=== PATIENT | male | born 1930 | race Caucasian/White ===

== ENCOUNTER → 2018-06-21 | Outpatient (CLI) | payer OTHER, MEDICARE ==
--- NOTE | 2018-06-21 13:33 | DIAGNOSTIC IMAGING REPORT ---
R WRIST MIN 3 VIEWS ROUTINE HISTORY: 88 years-old Male RIGHT WRIST PAIN acute right-sided wrist pain COMPARISON: None available TECHNIQUE: 3 views of the right wrist FINDINGS: Demineralized appearance of the bones. Chronic ulnar styloid fracture. Mild radiocarpal with advanced triscaphe and severe first carpometacarpal osteoarthritis. There is no acute fracture or dislocation identified. No opaque foreign body. Mild soft tissue swelling about the distal forearm and wrist. IMPRESSION: Soft tissue swelling without acute fracture. The above report was generated using voice recognition software. It may contain grammatical, syntax or spelling errors. Electronically signed by: Hai Avery M.D. 06/21/2018 1:31 PM Dictated Date/Time: 06/21/2018 1:29 PM
== END | disposition home or self-care (01) ==
LOC: C.RAD1850 11:58
PROVIDERS: ATTEND Family Medicine
DX: M25.531 Pain in right wrist (principal); M79.89 Other specified soft tissue disorders; W19.XXXA Unspecified fall, initial encounter

== ENCOUNTER 2019-11-09 14:11 | Inpatient (IN) ==
[2019-11-09] MEDS ORDERED: SODIUM CHLORIDE 0.9% 1000ML 1,000 ML IV ONE ×2 (14:35→14:56)
[2019-11-09] MEDS ORDERED: LEVALBUTEROL HCL 1.25 MG/3 ML NEB NEB STA ×2 (14:36→14:50)
[2019-11-09] MEDS ORDERED: LEVOFLOXACIN/D5W 750 MG/150 ML BAG IV STA (14:49)
[2019-11-09] MEDS ORDERED: PIPERACILL/TAZOBAC CONSULT ACTIVE PRN (14:49)
[2019-11-09] MEDS ORDERED: VANCOMYCIN HCL 1,250 MG in SODIUM CHLORIDE 0.9% 500 ML IV ONE (14:49)
[2019-11-09] MEDS ORDERED: VANCOMYCIN CONSULT ACTIVE PRN (14:49)
[2019-11-09] MEDS ORDERED: PIPERACILLIN/TAZOBACTAM 4.5 GM/120 ML BAG IV ONE (14:49)
--- NOTE | 2019-11-09 15:00 | XRay Report ---
XR chest 1V portable CLINICAL HISTORY: Sepsis. COMPARISON STUDY: Chest radiograph November 19, 2018. FINDINGS: There is no pneumothorax or pleural effusion. Several old left rib fractures are noted. Pat ient is rotated. Mild cardiomegaly is noted. Mild asymmetric interstitial thickening within the right lung is noted. There may be right perihilar/infrahilar opacity. IMPRESSION: Asymmetric interstitial thickening within the right lung with possible right perihilar/i nfrahilar opacity. These findings may reflect pneumonia or asymmetric pulmonary edema. Radiographic follow-up is recommended ACT 112: Negative or not required by law. Electronically signed by: Dell Rocha M.D. 11/09/2019 2:59 PM
[2019-11-09 15:07] LABS: iSTAT Creatinine 0.9 mg/dl (0.6-1.3); iSTAT Hemoglobin 13.6 g/dl (14.0-18.0); iSTAT Ionized Calcium 1.24 mmol/l (1.12-1.32); iSTAT Potassium 4.3 mEq/L (3.3-5.0)
[2019-11-09 15:11] LABS: Hematocrit (blood only) 36.6 % (42-52); Hemoglobin 12.3 g/dL (14.0-18.0); Mean Corpuscular Hemoglobin 31.3 pg (25-34); Mean Corpuscular Hgb Conc 33.6 g/dL (32-36); Mean Corpuscular Volume 93.1 fL (80-100); Mean Platelet Volume 9.6 fL (7.4-10.4); Platelet Count 256 K/uL (130-400); RDW Coefficient of Variation 14.6 % (11.5-14.5); RDW Standard Deviation 49.3 fL (36.4-46.3); Red Blood Count 3.93 M/uL (4.7-6.1); White Blood Count 25.57 K/uL (4.8-10.8)
[2019-11-09] MEDS ORDERED: HYDROCORTISONE SOD SUCCINATE 100 MG/2 ML VIAL IV STA (15:25)
[2019-11-09 15:27] LABS: INR 1.2 (0.9-1.1); Partial Thromboplastin Ratio 1.1; Partial Thromboplastin Time 28.9 Seconds (21.0-31.0); Prothrombin Time 11.8 Seconds (9.0-12.0)
[2019-11-09 15:28] LABS: Albumin Level 2.7 gm/dl (3.4-5.0); BUN Creatinine Ratio 26.5 (10-20); Calcium 9.4 mg/dl (8.5-10.1); Creatinine Clr Calc Pharmacy 44.4 ml/min; Est GFR (Non-African American) 63.8; Potassium 3.9 mmol/L (3.5-5.1)
[2019-11-09 15:38] LABS: Appearance Urine Clear (Clear); Bacteria Urine Automated Negative (Negative); Blood Urine Trace (Negative); Color Urine Orange; Glucose Urine UA Negative (Negative); Ketones Urine Negative (Negative); Leukocyte Esterase Urine Trace (Negative); Nitrite Urine Negative (Negative); Protein Urine Trace (Negative); Specific Gravity Urine 1.023 (1.000-1.030); Urobilinogen Urine Negative (Negative); pH Urine 5.5 (4.5-7.5)
[2019-11-09 15:42] LABS: Albumin Globulin Ratio 0.8 (0.9-2); Bilirubin,Total 2.2 mg/dl (0.2-1); Creatine Kinase MB 2.3 ng/ml (0.5-3.6); Globulin 3.4 gm/dl (2.5-4.0); Total Protein 6.1 gm/dl (6.4-8.2); Troponin I 0.064 ng/ml (0-0.045)
[2019-11-09 15:43] LABS: Influenza A virus by PCR Neg for Influ A (Neg); Influenza B virus by PCR Neg for Influ B (Neg)
[2019-11-09 15:46] LABS: Basophils # (auto) 0.02 K/uL (0-0.2); Basophils % (auto) 0.1 %; Immature Granulocytes # (auto) 0.13 K/uL (0.00-0.02); Immature Granulocytes % (auto) 0.5 %; Lymphocytes # (auto) 0.86 K/uL (1.2-3.4); Lymphocytes % (auto) 3.4 %; Monocytes # (auto) 2.38 K/uL (0.11-0.59); Monocytes % (auto) 9.3 %; Neutrophils # (auto) 22.18 K/uL (1.4-6.5); Neutrophils % (auto) 86.7 %
[2019-11-09 16:07] LABS: Bilirubin Urine 1+ (Negative)
[2019-11-09 16:09] LABS: Ictotest Urine Positive (Negative)
--- NOTE | 2019-11-09 16:12 | History & Physical Report ---
Date of Service November 09, 2019 Assessment & Plan (1) Pneumonia: Admits to telemetry Vital signs every 4 hours Lactic acid 1.8, repeat pending Monitor electrolytes and replenish Patient was given vancomycin, piperacillin, levofloxacin in the ER. He received 2250 mils of on normal saline and hydrocortisone sodium 100 mg IV, level butyryl 1.25 mg nebs x3 Arrival to the [facility] start patient on ceftriaxone 2 g IV daily with doxycycline 100 mg IV twice daily Duo nebs every 4 hours scheduled and as needed per RT Blood culture, urine culture and sputum pending Continue Solu-Medrol 40 mg IV twice daily Chest x-ray is referring to possible pulmonary edema. Patient was started on Lasix 20 IV twice daily. Will titrate up as needed to achieve diuresis of 1 to 1.5 L/day. 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 Present on Admission?: Yes (2) Hypotension: Continue monitoring. Patient will possibly need vasopressors and that was discussed with Dr. Peterson Hold home dose of lisinopril Present on Admission?: Yes (3) Acute respiratory failure: As discussed above, continue supplemental oxygen and keep oxygenation a idania 92% Present on Admission?: Yes (4) Elevated troponin: Appears to be due to demand ischemia Continue trending down troponins with EKG Patient denies chest pain TTE pending Present on Admission?: Yes History of Present Illness Chief Complaint: Shortness of breath and cough Primary Care Provider: Perez Barros MD The patient is an 89 years old male with past medical history of hypertension who was brought to the emergency room with a complaint of fever chills cough being dizzy for 3 to 5 days. Patient son and daughter are at the bedside and giving history. Patient is poor historian and his daughter said this occurred after he had in OctoberMay 2019 removal of subdural hematoma in [facility]. Current CT scan measures up to 7 mm in thickness small left frontal chronic subdural hematoma. No acute hemorrhage identified. No mass or acute infarct. Minimal right midline shift, unchanged. Mild atrophy and microvascular ischemic changes are again noted. Patient daughter reports that patient girlfriend ended up with a pneumonia in another hospital approximately 7 days ago. Patient ambulate only with walker but lately became increasingly weak that family believes at this time he can only use wheelchair to move around. Patient's appetite is decreased as of today but yesterday he ate very well. Patient denies headache, chest pain, abdominal pain, frequency, urgency, syncope or near syncope. Patient daughter also reported a swelling of his right calf. Ultrasound of the calf was done and shows no fluid collection within the right calf by sonography. No mass or other sonographic abnormality was identified no right calf abscess by ultrasound. Labs are reviewed: WBC is 25.57, hemoglobin 12.3, hematocrit 36.6, platelets 256, PT 11.8, INR 1.2, APTT 28.9, sodium 137, potassium 3.9, chloride 104, BUN 28 creatinine 1.04, and GFR 63.8, glucose 118, lactate 1.8, repeated lactate pending, magnesium 2, AST 21, ALT 27, troponin 0.064, BNP 3203, Albumin 2.7, TSH pending, procalcitonin 9.28. Urine orange, trace blood, 1+ nitrate, leukocyte esterase trace, normal WBCs negative for bacteria. Influenza AMB negative. Chest x-rays show asymmetric interstitial thickening within the right lung with possible right perihilar/infrahilar opacity. These findings may reflect pneumonia or asymmetric pulmonary edema. Decision is made to admit patient to [facility] on telemetry for pneumonia. Allergies Allergy/AdvReac Type Severity Reaction Status Date / Time No Known Allergies Allergy Verified 11/09/19 15:19 Home Medications Home Medications Medication Instructions Recorded Confirmed Type lisinopril 10 mg PO DAILY 11/19/18 11/09/19 History Past Med/Surg History Medical History Arthritis (Chronic) Basal cell carcinoma (Chronic) Falls frequently (Acute) History of fall SDH (subdural hematoma) (Chronic) Surgical History No significant past surgical history Family History Other Family history non-contributory Social History Preferred Language: Malian Communication Ability: Effective Current Living Situation: Family Feels Safe at Home: Yes Smoking Status: Never smoker Review of Systems Review of Systems: All systems reviewed & are unremarkable except as noted in HPI & below Physical Exam Constitutional: WD/WN, vitals as above well developed and + cachectic Eyes: PERRL, conjunctivae normal, anicteric sclerae ENMT: external ear and nose normal, oropharynx normal Neck: trachea midline, no thyromegaly Respiratory: normal respiratory effort, + respiratory distress and + labored breathing Auscultation: + crackles and + wheezes Cardiovascular: Heart Sounds: normal S1 and normal S2 Palpation: + palpable S3 Gastrointestinal (Abdomen): normal bowel sounds, soft, nontender, no hepatosplenomegaly Musculoskeletal: no cyanosis or clubbing, extremities motor strength 5/5 Skin: Multiple skin lesions on the scalp upper chest and face-basal cell carcinoma per patient history Neurologic: patellar DTR's 2+ bilat, sensation intact Psychiatric: A+Ox3, euthymic affect Lymphatic: no cervical or axillary lymphadenopathy Results & Data Vital Signs (Past 12 Hours) Vital Signs Temp Pulse Pulse Resp BP Pulse Ox 11/09/19 15:17 85 18 96 11/09/19 14:50 89 20 94 11/09/19 14:44 94 11/09/19 14:17 37.2 C 101 H 20 63/41 L 90 Code Status & VTE Plan Code Status DNR/DNI VTE Prophylaxis Plan VTE Prophylaxis will be ordered: Yes PG Care Time/CCT Total # of Minutes Spent Total Time Spent with Patient: Total time spent is greater than 50% in c oordination of care (as documented) at patient's floor/unit and/or counseling patient:
--- NOTE | 2019-11-09 16:28 | Ultrasound Report ---
US extremity non-vascular ltd CLINICAL HISTORY: Rt calf abscess COMPARISON STUDY: No previous studies for comparison. TECHNIQUE: Sonography of the right calf at site of swelling was performed. FINDINGS: No fluid collection was identified within the right calf by sonography. No mass or other so nographic abnormality was identified IMPRESSION: No right calf abscess by ultrasound. ACT 112: Negative or not required by law. Electronically signed by: Dell Rocha M.D. 11/09/2019 4:26 PM
[2019-11-09] MEDS ORDERED: SODIUM CHLORIDE 0.9% 1000ML 250 ML IV ONE (16:45)
--- NOTE | 2019-11-09 19:05 | Emergency Department Note ---
Entered by Ciera La acting as a scribe for History of Present Illness General Chief complaint: Fever Stated complaint: FEVER, COUGH Time Seen by Provider: 11/09/19 14:29 Source: family (daughter) History of Present Illness Onset (ago): day(s) (couple) Location: chest (chest congestion) Pain Consistency: + other (worsening) Relieved By: + none Associated symptoms: + cough, + fever/chills (fever) and + other (dehydration, chest congestion, low oxygen levels) Treatments prior to arrival: other (Advil) The patient is a 89 year old M who presents to the Emergency Room with complaints of a worsening chest congestion that started a couple of days ago. The HPI was provided by the patients daughter. She states that the patient lives his friend. She notes that the patients friends family picked up the friend yesterday and took her to the ER. She adds that the patients friend was admitted to the hospital for pneumonia, yesterday. She states that she took the patient to see his PCP, Dr. Barros, , because he was experiencing low oxygen levels. She a notes that the patient is currently experiencing low oxygen levels, a fever, dehydration, chest congestion, and coughing. She adds that she took the patients temperature this morning, which she states was 100.5. She notes that she gave the patient Advil for his fever. She states that the patient walks minimally with a walker. She adds that the patient has been eating small amounts of food for the past week. Home Medications Home Medications Medication Instructions Recorded Confirmed Type lisinopril 10 mg PO DAILY 11/19/18 11/09/19 History Allergies Allergy/AdvReac Type Severity Reaction Status Date / Time No Known Allergies Allergy Verified 11/09/19 15:19 Past Med/Surg History Medical History Arthritis (Chronic) Basal cell carcinoma (Chronic) Falls frequently (Acute) History of fall SDH (subdural hematoma) (Chronic) Surgical History No significant past surgical history Family History Other Family history non-contributory Social History Preferred Language: Bulgarian Communication Ability: Effective Current Living Situation: Family Feels Safe at Home: Yes Smoking Status: Never smoker Review of Systems See HPI for pertinent positives & negatives. and A total of 10 systems reviewed and were otherwise negative Physical Exam Vital Signs Vital Signs - 24 hr 11/09/19 14:17 11/09/19 14:30 11/09/19 14:40 Temperature 37.2 C Temperature Source Oral Pulse Rate 101 H 90 91 H Pulse Rate [Apical] Pulse Rate from SpO2 Sensor 89 91 H Pulse Rhythm [Apical] Respiratory Rate 20 19 21 Respiratory Effort / Characteristics Non-Labored Spontaneous Respiratory Depth Normal Respiratory Pattern Regular Blood Pressure 63/41 L 74/50 L 94/50 L Blood Pressure [Right Arm] Blood Pressure Mean 48 61 54 Blood Pressure Mean [Right Arm] Blood Pressure Position Sitting Pulse Oximetry 90 90 92 Oxygen Delivery Method Room Air Nasal Cannula Nasal Cannula Oxygen Flow Rate 4 Sepsis Recent Fever Within 48 Hours Yes Sepsis New/Unexplained Change in Mental Status Yes Sepsis Action Taken by Nursing Physician Notified 11/09/19 14:44 11/09/19 14:45 11/09/19 14:50 Temperature Temperature Source Pulse Rate 89 Pulse Rate [Apical] 89 Pulse Rate from SpO2 Sensor 90 Pulse Rhythm [Apical] Respiratory Rate 20 20 Respiratory Effort / Characteristics Spontaneous Respiratory Depth Respiratory Pattern Blood Pressure 86/52 L Blood Pressure [Right Arm] Blood Pressure Mean 65 Blood Pressure Mean [Right Arm] Blood Pressure Position Pulse Oximetry 94 94 94 Oxygen Delivery Method Nasal Cannula Nasal Cannula Nasal Cannula Oxygen Flow Rate 4 4 Sepsis Recent Fever Within 48 Hours Sepsis New/Unexplained Change in Mental Status Sepsis Action Taken by Nursing 11/09/19 15:00 11/09/19 15:15 11/09/19 15:17 Temperature Temperature Source Pulse Rate 86 79 Pulse Rate [Apical] 85 Pulse Rate from SpO2 Sensor 86 79 Pulse Rhythm [Apical] Respiratory Rate 18 17 18 Respiratory Effort / Characteristics Spontaneous Respiratory Depth Respiratory Pattern Blood Pressure 91/52 L 85/48 L Blood Pressure [Right Arm] Blood Pressure Mean 62 62 Blood Pressure Mean [Right Arm] Blood Pressure Position Pulse Oximetry 95 96 96 Oxygen Delivery Method Nasal Cannula Nasal Cannula Nasal Cannula Oxygen Flow Rate 4 Sepsis Recent Fever Within 48 Hours Sepsis New/Unexplained Change in Mental Status Sepsis Action Taken by Nursing 11/09/19 15:30 11/09/19 15:46 11/09/19 16:19 Temperature Temperature Source Pulse Rate 76 78 88 Pulse Rate [Apical] Pulse Rate from SpO2 Sensor 77 87 Pulse Rhythm [Apical] Respiratory Rate 18 18 19 Respiratory Effort / Characteristics Respiratory Depth Respiratory Pattern Blood Pressure 102/47 L 112/45 L 97/51 L Blood Pressure [Right Arm] Blood Pressure Mean 66 81 66 Blood Pressure Mean [Right Arm] Blood Pressure Position Pulse Oximetry 98 93 Oxygen Delivery Method Nasal Cannula Nasal Cannula Oxygen Flow Rate Sepsis Recent Fever Within 48 Hours Sepsis New/Unexplained Change in Mental Status Sepsis Action Taken by Nursing 11/09/19 16:20 11/09/19 16:21 11/09/19 16:31 Temperature Temperature Source Pulse Rate 90 85 88 Pulse Rate [Apical] 90 Pulse Rate from SpO2 Sensor 96 H 86 90 Pulse Rhythm [Apical] Regular Respiratory Rate 17 18 18 Respiratory Effort / Characteristics Spontaneous Respiratory Depth Normal Respiratory Pattern Blood Pressure 85/42 L 91/44 L 83/44 L Blood Pressure [Right Arm] 91/44 L Blood Pressure Mean 52 68 59 Blood Pressure Mean [Right Arm] 59 Blood Pressure Position Pulse Oximetry 95 96 94 Oxygen Delivery Method Nasal Cannula Nasal Cannula Nasal Cannula Oxygen Flow Rate 4 Sepsis Recent Fever Within 48 Hours Sepsis New/Unexplained Change in Mental Status Sepsis Action Taken by Nursing 11/09/19 16:45 11/09/19 17:00 11/09/19 17:15 Temperature Temperature Source Pulse Rate 74 75 65 Pulse Rate [Apical] Pulse Rate from SpO2 Sensor 74 76 71 Pulse Rhythm [Apical] Respiratory Rate 13 17 Respiratory Effort / Characteristics Respiratory Depth Respiratory Pattern Blood Pressure 88/48 L 90/52 L 115/52 L Blood Pressure [Right Arm] Blood Pressure Mean 63 63 63 Blood Pressure Mean [Right Arm] Blood Pressure Position Pulse Oximetry 96 96 92 Oxygen Delivery Method Nasal Cannula Nasal Cannula Nasal Cannula Oxygen Flow Rate Sepsis Recent Fever Within 48 Hours Sepsis New/Unexplained Change in Mental Status Sepsis Action Taken by Nursing 11/09/19 17:30 11/09/19 17:45 11/09/19 17:49 Temperature Temperature Source Pulse Rate 66 67 71 Pulse Rate [Apical] Pulse Rate from SpO2 Sensor 68 68 70 Pulse Rhythm [Apical] Respiratory Rate 16 14 15 Respiratory Effort / Characteristics Respiratory Depth Respiratory Pattern Blood Pressure 105/49 L 111/60 110/58 L Blood Pressure [Right Arm] Blood Pressure Mean 64 78 67 Blood Pressure Mean [Right Arm] Blood Pressure Position Pulse Oximetry 95 95 94 Oxygen Delivery Method Nasal Cannula Oxygen Flow Rate Sepsis Recent Fever Within 48 Hours Sepsis New/Unexplained Change in Mental Status Sepsis Action Taken by Nursing 11/09/19 18:00 11/09/19 18:12 11/09/19 18:15 Temperature Temperature Source Pulse Rate 68 66 68 Pulse Rate [Apical] Pulse Rate from SpO2 Sensor 67 66 68 Pulse Rhythm [Apical] Respiratory Rate 18 15 16 Respiratory Effort / Characteristics Respiratory Depth Respiratory Pattern Blood Pressure 127/71 112/58 L 113/61 Blood Pressure [Right Arm] Blood Pressure Mean 90 83 84 Blood Pressure Mean [Right Arm] Blood Pressure Position Pulse Oximetry 97 96 97 Oxygen Delivery Method Oxygen Flow Rate Sepsis Recent Fever Within 48 Hours Sepsis New/Unexplained Change in Mental Status Sepsis Action Taken by Nursing 11/09/19 18:30 Temperature Temperature Source Pulse Rate 69 Pulse Rate [Apical] Pulse Rate from SpO2 Sensor 69 Pulse Rhythm [Apical] Respiratory Rate 20 Respiratory Effort / Characteristics Respiratory Depth Respiratory Pattern Blood Pressure 122/70 Blood Pressure [Right Arm] Blood Pressure Mean 75 Blood Pressure Mean [Right Arm] Blood Pressure Position Pulse Oximetry 98 Oxygen Delivery Method Oxygen Flow Rate Sepsis Recent Fever Within 48 Hours Sepsis New/Unexplained Change in Mental Status Sepsis Action Taken by Nursing GENERAL: Awake, alert, cachectic-appearing HENT: Normocephalic, atraumatic. Oropharynx unremarkable. EYES: Normal conjunctiva. Sclera non-icteric. NECK: Supple. No nuchal rigidity. FROM. No JVD. RESPIRATORY: Rales at bases. CARDIAC: Regular rate, normal rhythm. Extremities warm and well perfused. Pulses equal. ABDOMEN: Soft, non-distended. No tenderness to palpation. No rebound or guarding. No masses. RECTAL: Deferred. MUSCULOSKELETAL: Chest examination reveals no tenderness. The back is symmetrical on inspection without obvious abnormality. There is no CVA tenderness to palpation. No joint edema. LOWER EXTREMITIES: Calves are equal size bilaterally and non-tender. No edema. No discoloration. NEURO: Normal sensorium. No sensory or motor deficits noted. SKIN: No rash or jaundice noted. Quarter sized wound on the right calf area that is draining purulent drainage. Course Course 1431: The patient was evaluated in room A2. A complete history and physical exam was performed. 1452: I re-checked the patient. Blood pressures are improving. 1548: I reviewed the patient's case with Dr. Kim, [facility] Hospitalist. She will evaluate the patient for further management. Administered Medications Discontinued Medications Hydrocortisone Sodium Succinate (Solu-Cortef) 100 mg IV NOW STA Stop: 11/09/19 15:26 Last Admin: 11/09/19 15:48 Dose: 100 mg Documented by: [id number] Sodium Chloride (Nss 1000ml) 1,000 mls @ 999 mls/hr IV .Q1H1M ONE Stop: 11/09/19 15:35 Last Infusion: 11/09/19 15:49 Dose: 0 mls/hr Documented by: [id number] Admin: 11/09/19 14:50 Dose: 999 mls/hr Documented by: [id number] Piperacillin Sod/Tazobactam Sod (Zosyn) 4.5 gm in 120 mls @ 240 mls/hr IV NOW ONE Stop: 11/09/19 15:18 Last Infusion: 11/09/19 15:49 Dose: 0 mls/hr Documented by: [id number] Admin: 11/09/19 15:06 Dose: 240 mls/hr Documented by: [id number] Levofloxacin/Dextrose (Levaquin/D5w) 750 mg in 150 mls @ 100 mls/hr IV NOW STA Stop: 11/09/19 16:18 Last Infusion: 11/09/19 16:36 Dose: 0 mls/hr Documented by: [id number] Admin: 11/09/19 15:05 Dose: 100 mls/hr Documented by: [id number] Vancomycin HCl 1,250 mg/ (Sodium Chloride) 525 mls @ 200 mls/hr IV NOW ONE Stop: 11/09/19 17:26 Last Infusion: 11/09/19 18:39 Dose: 0 mls/hr Documented by: [id number] Admin: 11/09/19 15:48 Dose: 200 mls/hr Documented by: [id number] Sodium Chloride (Nss 1000ml) 1,000 mls @ 999 mls/hr IV .Q1H1M ONE Stop: 11/09/19 15:56 Last Infusion: 11/09/19 16:02 Dose: 0 mls/hr Documented by: [id number] Admin: 11/09/19 15:13 Dose: 999 mls/hr Documented by: [id number] Sodium Chloride (Nss 1000ml) 250 mls @ 999 mls/hr IV .Q16M ONE Stop: 11/09/19 17:00 Last Infusion: 11/09/19 18:39 Dose: 0 mls/hr Documented by: [id number] Admin: 11/09/19 16:49 Dose: 999 mls/hr Documented by: [id number] Levalbuterol HCl (Xopenex 1.25mg/3ml Neb) 1.25 mg NEB NOW STA Stop: 11/09/19 14:37 Last Admin: 11/09/19 14:48 Dose: 1.25 mg Documented by: [id number] Levalbuterol HCl (Xopenex 1.25mg/3ml Neb) 1.25 mg NEB NOW STA Stop: 11/09/19 14:51 Last Admin: 11/09/19 15:14 Dose: 1.25 mg Documented by: [id number] Critical Care Time I have personally spent greater than 90 minutes of critical care time in the direct management of this patient. This includes bedside care, interpretation of diagnostic studies, and testing, discussion with consultants, patient, and family members, and other required patient management activities. This 90 minutes is in excess of all separately billable procedures. Medical Decision Making Differential Diagnosis Differential diagnosis: Etiologies such as sepsis, UTI, pneumonia, metabolic, electrolyte abnormalities,cardiac sources, intracerebral event, toxicologic, neurologic, as well as others were entertained. Medical Records Attestation: I reviewed the patient's medical records. Home Medications Current Medication List: was personally reviewed by me Laboratory Data Attestation: I reviewed the patient's lab results. Result diagrams: 11/09/19 14:52 11/09/19 14:52 Lab Results 11/09/19 11/09/19 11/09/19 Range/Units 14:41 14:52 14:52 WBC 25.57 H (4.8-10.8) K/uL RBC 3.93 L (4.7-6.1) M/uL Hgb 12.3 L (14.0-18.0) g/dL POC Hgb (14.0-18.0) g/dl Hct 36.6 L (42-52) % POC Hct (42-52) % MCV 93.1 (80-100) fL MCH 31.3 (25-34) pg MCHC 33.6 (32-36) g/dL RDW Std Deviation 49.3 H (36.4-46.3) fL RDW Coeff of Radha 14.6 H (11.5-14.5) % Plt Count 256 (130-400) K/uL MPV 9.6 (7.4-10.4) fL Immature Gran % (Auto) 0.5 % Neut % (Auto) 86.7 % Lymph % (Auto) 3.4 % Holmes % (Auto) 9.3 % Eos % (Auto) 0.0 % Baso % (Auto) 0.1 % Immature Gran # (Auto) 0.13 H (0.00-0.02) K/uL Neut # (Auto) 22.18 H (1.4-6.5) K/uL Lymph # (Auto) 0.86 L (1.2-3.4) K/uL Holmes # (Auto) 2.38 H (0.11-0.59) K/uL Eos # (Auto) 0.00 (0-0.5) K/uL Baso # (Auto) 0.02 (0-0.2) K/uL PT 11.8 (9.0-12.0) Seconds INR 1.2 H (0.9-1.1) APTT 28.9 (21.0-31.0) Seconds PTT Ratio 1.1 POC Sodium (135-144) mEq/L Sodium (136-145) mmol/L POC Potassium (3.3-5.0) mEq/L Potassium (3.5-5.1) mmol/L POC Chloride (101-112) mEq/L Chloride (98-107) mmol/L Carbon Dioxide (21-32) mmol/L POC Total CO2 (24-31) mEq/l Anion Gap (3-11) POC Anion Gap (16-25) mmol/L POC BUN (7-18) mg/dl BUN (7-18) mg/dl Creatinine (0.6-1.4) mg/dl POC Creatinine (0.6-1.3) mg/dl Est Cr Clr Drug Dosing ml/min Est GFR ( Amer) Est GFR (Non-Af Amer) BUN/Creatinine Ratio (10-20) Glucose (70-99) mg/dl POC Glucose (other) (70-99) mg/dl Lactate (0.4-2.0) mmol/L Calcium (8.5-10.1) mg/dl POC Ioniz Calcium Melba (1.12-1.32) mmol/l Magnesium (1.8-2.4) mg/dl Total Bilirubin (0.2-1) mg/dl AST (15-37) U/L ALT (12-78) U/L Alkaline Phosphatase (45-117) U/L Total Creatine Kinase (39-308) U/L CK-MB (CK-2) (0.5-3.6) ng/ml CK/CKMB % Calc (0-3.0) Troponin I (0-0.045) ng/ml NT-Pro-B Natriuret Pep (0-1800) pg/ml Total Protein (6.4-8.2) gm/dl Albumin (3.4-5.0) gm/dl Globulin (2.5-4.0) gm/dl Albumin/Globulin Ratio (0.9-2) Procalcitonin (0-0.5) ng/ml Urine Color Urine Appearance (Clear) Urine pH (4.5-7.5) Ur Specific [place] (1.000-1.030) Urine Protein (Negative) Urine Glucose (UA) (Negative) Urine Ketones (Negative) Urine Blood (Negative) Urine Nitrite (Negative) Urine Bilirubin (Negative) Urine Urobilinogen (Negative) Ur Leukocyte Esterase (Negative) Urine WBC (Auto) (0-5) /hpf Urine RBC (Auto) (0-4) /hpf U Hyaline Cast (Auto) (0-5) /lpf U Epithel Cells (Auto) (0-5) /lpf Urine Bacteria (Auto) (Negative) Influenza Type A (PCR) Neg for Influ A (Neg) Influenza Type B (PCR) Neg for Influ B (Neg) 11/09/19 11/09/19 11/09/19 Range/Units 14:52 14:52 14:52 WBC (4.8-10.8) K/uL RBC (4.7-6.1) M/uL Hgb (14.0-18.0) g/dL POC Hgb (14.0-18.0) g/dl Hct (42-52) % POC Hct (42-52) % MCV (80-100) fL MCH (25-34) pg MCHC (32-36) g/dL RDW Std Deviation (36.4-46.3) fL RDW Coeff of Radha (11.5-14.5) % Plt Count (130-400) K/uL MPV (7.4-10.4) fL Immature Gran % (Auto) % Neut % (Auto) % Lymph % (Auto) % Holmes % (Auto) % Eos % (Auto) % Baso % (Auto) % Immature Gran # (Auto) (0.00-0.02) K/uL Neut # (Auto) (1.4-6.5) K/uL Lymph # (Auto) (1.2-3.4) K/uL Holmes # (Auto) (0.11-0.59) K/uL Eos # (Auto) (0-0.5) K/uL Baso # (Auto) (0-0.2) K/uL PT (9.0-12.0) Seconds INR (0.9-1.1) APTT (21.0-31.0) Seconds PTT Ratio POC Sodium (135-144) mEq/L Sodium 137 (136-145) mmol/L POC Potassium (3.3-5.0) mEq/L Potassium 3.9 (3.5-5.1) mmol/L POC Chloride (101-112) mEq/L Chloride 104 (98-107) mmol/L Carbon Dioxide 26 (21-32) mmol/L POC Total CO2 (24-31) mEq/l Anion Gap 7.0 (3-11) POC Anion Gap (16-25) mmol/L POC BUN (7-18) mg/dl BUN 28 H (7-18) mg/dl Creatinine 1.04 (0.6-1.4) mg/dl POC Creatinine (0.6-1.3) mg/dl Est Cr Clr Drug Dosing 44.4 ml/min Est GFR ( Amer) 74.0 Est GFR (Non-Af Amer) 63.8 BUN/Creatinine Ratio 26.5 H (10-20) Glucose 118 H (70-99) mg/dl POC Glucose (other) (70-99) mg/dl Lactate 1.8 (0.4-2.0) mmol/L Calcium 9.4 (8.5-10.1) mg/dl POC Ioniz Calcium Melba (1.12-1.32) mmol/l Magnesium 2.0 (1.8-2.4) mg/dl Total Bilirubin 2.2 H (0.2-1) mg/dl AST 21 (15-37) U/L ALT 27 (12-78) U/L Alkaline Phosphatase 132 H (45-117) U/L Total Creatine Kinase 52 (39-308) U/L CK-MB (CK-2) 2.3 (0.5-3.6) ng/ml CK/CKMB % Calc 4.4 H (0-3.0) Troponin I 0.064 H* (0-0.045) ng/ml NT-Pro-B Natriuret Pep 3203 H (0-1800) pg/ml Total Protein 6.1 L (6.4-8.2) gm/dl Albumin 2.7 L (3.4-5.0) gm/dl Globulin 3.4 (2.5-4.0) gm/dl Albumin/Globulin Ratio 0.8 L (0.9-2) Procalcitonin 9.28 H (0-0.5) ng/ml Urine Color Urine Appearance (Clear) Urine pH (4.5-7.5) Ur Specific [place] (1.000-1.030) Urine Protein (Negative) Urine Glucose (UA) (Negative) Urine Ketones (Negative) Urine Blood (Negative) Urine Nitrite (Negative) Urine Bilirubin (Negative) Urine Urobilinogen (Negative) Ur Leukocyte Esterase (Negative) Urine WBC (Auto) (0-5) /hpf Urine RBC (Auto) (0-4) /hpf U Hyaline Cast (Auto) (0-5) /lpf U Epithel Cells (Auto) (0-5) /lpf Urine Bacteria (Auto) (Negative) Influenza Type A (PCR) (Neg) Influenza Type B (PCR) (Neg) 11/09/19 11/09/19 11/09/19 Range/Units 14:55 15:24 17:05 WBC (4.8-10.8) K/uL RBC (4.7-6.1) M/uL Hgb (14.0-18.0) g/dL POC Hgb 13.6 L (14.0-18.0) g/dl Hct (42-52) % POC Hct 40 L (42-52) % MCV (80-100) fL MCH (25-34) pg MCHC (32-36) g/dL RDW Std Deviation (36.4-46.3) fL RDW Coeff of Radha (11.5-14.5) % Plt Count (130-400) K/uL MPV (7.4-10.4) fL Immature Gran % (Auto) % Neut % (Auto) % Lymph % (Auto) % Holmes % (Auto) % Eos % (Auto) % Baso % (Auto) % Immature Gran # (Auto) (0.00-0.02) K/uL Neut # (Auto) (1.4-6.5) K/uL Lymph # (Auto) (1.2-3.4) K/uL Holmes # (Auto) (0.11-0.59) K/uL Eos # (Auto) (0-0.5) K/uL Baso # (Auto) (0-0.2) K/uL PT (9.0-12.0) Seconds INR (0.9-1.1) APTT (21.0-31.0) Seconds PTT Ratio POC Sodium 134 L (135-144) mEq/L Sodium (136-145) mmol/L POC Potassium 4.3 (3.3-5.0) mEq/L Potassium (3.5-5.1) mmol/L POC Chloride 101 (101-112) mEq/L Chloride (98-107) mmol/L Carbon Dioxide (21-32) mmol/L POC Total CO2 26 (24-31) mEq/l Anion Gap (3-11) POC Anion Gap 13.0 L (16-25) mmol/L POC BUN 29 H (7-18) mg/dl BUN (7-18) mg/dl Creatinine (0.6-1.4) mg/dl POC Creatinine 0.9 (0.6-1.3) mg/dl Est Cr Clr Drug Dosing ml/min Est GFR ( Amer) Est GFR (Non-Af Amer) BUN/Creatinine Ratio (10-20) Glucose (70-99) mg/dl POC Glucose (other) 116 H (70-99) mg/dl Lactate 3.5 H* (0.4-2.0) mmol/L Calcium (8.5-10.1) mg/dl POC Ioniz Calcium Melba 1.24 (1.12-1.32) mmol/l Magnesium (1.8-2.4) mg/dl Total Bilirubin (0.2-1) mg/dl AST (15-37) U/L ALT (12-78) U/L Alkaline Phosphatase (45-117) U/L Total Creatine Kinase (39-308) U/L CK-MB (CK-2) (0.5-3.6) ng/ml CK/CKMB % Calc (0-3.0) Troponin I (0-0.045) ng/ml NT-Pro-B Natriuret Pep (0-1800) pg/ml Total Protein (6.4-8.2) gm/dl Albumin (3.4-5.0) gm/dl Globulin (2.5-4.0) gm/dl Albumin/Globulin Ratio (0.9-2) Procalcitonin (0-0.5) ng/ml Urine Color [place] Urine Appearance Clear (Clear) Urine pH 5.5 (4.5-7.5) Ur Specific [place] 1.023 (1.000-1.030) Urine Protein Trace H (Negative) Urine Glucose (UA) Negative (Negative) Urine Ketones Negative (Negative) Urine Blood Trace H (Negative) Urine Nitrite Negative (Negative) Urine Bilirubin 1+ H (Negative) Urine Urobilinogen Negative (Negative) Ur Leukocyte Esterase Trace H (Negative) Urine WBC (Auto) 1-5 (0-5) /hpf Urine RBC (Auto) 5-10 H (0-4) /hpf U Hyaline Cast (Auto) 1-5 (0-5) /lpf U Epithel Cells (Auto) 5-10 H (0-5) /lpf Urine Bacteria (Auto) Negative (Negative) Influenza Type A (PCR) (Neg) Influenza Type B (PCR) (Neg) Imaging Data Radiologist's Impression: Radiology results as stated below per my review and the radiologist's interpretation: XR chest 1V portable CLINICAL HISTORY: Sepsis. COMPARISON STUDY: Chest radiograph November 19, 2018. FINDINGS: There is no pneumothorax or pleural effusion. Several old left rib fractures are noted. Patient is rotated. Mild cardiomegaly is noted. Mild asymmetric interstitial thickening within the right lung is noted. There may be right perihilar/infrahilar opacity. IMPRESSION: Asymmetric interstitial thickening within the right lung with possible right perihilar/infrahilar opacity. These findings may reflect pneumonia or asymmetric pulmonary edema. Radiographic follow-up is recommended ACT 112: Negative or not required by law. Electronically signed by: Dell Rocha M.D. 11/09/2019 2:59 PM US extremity non-vascular ltd CLINICAL HISTORY: Rt calf abscess COMPARISON STUDY: No previous studies for comparison. TECHNIQUE: Sonography of the right calf at site of swelling was performed. FINDINGS: No fluid collection was identified within the right calf by sonography. No mass or other sonographic abnormality was identified IMPRESSION: No right calf abscess by ultrasound. ACT 112: Negative or not required by law. Electronically signed by: Dell Rocha M.D. 11/09/2019 4:26 PM ECG Data Attestation: I personally reviewed and interpreted this ECG as follows: Indication: + other (chest congestion) Rate (beats per minute): 88 ECG Intervals/blocks: + First degree AV block and + Left anterior fascicular block ECG ST segments: no ST depression and no ST elevation ECG Findings: + Other (QTc 428) Blood Pressure Blood Pressure Findings: Low blood pressure Blood Pressure Disposition: further management by hospitalist MDM Narrative This is an 89-year-old male who presents emergency department complaining of weakness. The patient is found to be hypotensive and tachycardic and hypoxic upon arrival to the emergency department. Based on this a sepsis alert was immediately initiated. The patient was given 30 mL's per kilogram of fluid. He was found to have an elevation in his lactate at 3.5, his troponin was also fo und to be elevated as well as his white blood cell count. The patient improved after receiving 2 L of fluid. He was also given Solu-Cortef and started on broad-spectrum antibiotics including Zosyn Levaquin and vancomycin. He was sent for an ultrasound of his right lower extremity to ensure that there was not a drainable abscess there. His chest x-ray is concerning for pneumonia. I did discuss the case with the hospitalist service who did agree to admit the patient. I also had a lengthy conversation with the patient's family in regards to wishes. They do not wish the patient to be intubated or to be resuscitated if his heart were to stop however they are in agreement with fluids and an tibiotics. Impression & Plan Pneumonia, Hypotension, Acute respiratory failure, Elevated troponin Discharge Plan Visit Data Chief Complaint: Fever Stated Complaint: FEVER, COUGH ED Provider: Saji Painter Discharge Problem: Pneumonia, Hypotension, Acute respiratory failure, Elevated troponin Patient Disposition: Admitted As Inpatient Forms Stand Alone Forms: My [facility] Prescriptions Prescriptions: No Action lisinopril 10 mg tablet 10 mg PO DAILY RF: 0 Referrals Referrals: Perez Barros MD [Primary Care Provider] - Discharge Problem: Pneumonia Qualifiers: Pneumonia type: due to unspecified organism Laterality: unspecified laterality Lung location: unspecified part of lung Qualified Code(s): J18.9 - Pneumonia, unspecified organism Hypotension Qualifiers: Hypotension type: unspecified hypotension type Qualified Code(s): I95.9 - Hypotension, unspecified Acute respiratory failure Qualifiers: Respiratory failure complication: hypoxia Qualified Code(s): J96.01 - Acute respiratory failure with hypoxia The scribe's documentation has been prepared under my direction and personally reviewed by me in its entirety. I confirm that the note above accurately re flects all work, treatment, procedures, and medical decision making performed by me.
[2019-11-09] MEDS ORDERED: POLYETHYLENE (MIRALAX) 17 GM PACK PO PRN (19:28)
[2019-11-09] MEDS ORDERED: ACETAMINOPHEN 325 MG TAB PO PRN (19:28)
[2019-11-09] MEDS ORDERED: GUAIFENESIN/CODEINE 200MG/20MG 10ML UDC PO PRN (19:28)
[2019-11-09] MEDS ORDERED: ALUMINUM/MAGNESIUM SUSP 30 ML UDC PO PRN (19:28)
[2019-11-09] MEDS ORDERED: MAGNESIUM HYDROXIDE SUSP 30 ML UDC PO PRN (19:28)
[2019-11-09] MEDS: methylPREDNISolone 20 MG in SYRINGE 0 ML IV SCH (20:44)
[2019-11-09] MEDS: FUROSEMIDE 20 MG in SYRINGE 0 ML IV SCH (20:44)
[2019-11-09] MEDS: cefTRIAXone SODIUM 2,000 MG in DEXTROSE 5% 50 ML IV SCH (20:45)
[2019-11-09] MEDS: BUDESONIDE/FORMOTEROL FUMARATE 160/4.5 60 PUFFS/INHALER INH SCH (20:45)
[2019-11-09] MEDS: DOXYCYCLINE HYCLATE 100 MG in DEXTROSE 5% 100 ML IV SCH (20:52)
[2019-11-09] MEDS ORDERED: FUROSEMIDE 40 MG/4 ML VIAL IV SCH (21:00)
[2019-11-10 01:46] LABS: Hematocrit (blood only) 35.2 % (42-52); Hemoglobin 11.7 g/dL (14.0-18.0); Mean Corpuscular Hemoglobin 30.9 pg (25-34); Mean Corpuscular Hgb Conc 33.2 g/dL (32-36); Mean Corpuscular Volume 92.9 fL (80-100); Platelet Count 214 K/uL (130-400); RDW Coefficient of Variation 14.9 % (11.5-14.5); RDW Standard Deviation 50.1 fL (36.4-46.3); Red Blood Count 3.79 M/uL (4.7-6.1)
[2019-11-10 02:09] LABS: Basophils # (auto) 0.01 K/uL (0-0.2); Basophils % (auto) 0.1 %; Immature Granulocytes # (auto) 0.06 K/uL (0.00-0.02); Immature Granulocytes % (auto) 0.3 %; Lymphocytes # (auto) 0.47 K/uL (1.2-3.4); Lymphocytes % (auto) 2.5 %; Monocytes # (auto) 1.08 K/uL (0.11-0.59); Monocytes % (auto) 5.8 %; Neutrophils # (auto) 16.98 K/uL (1.4-6.5); Neutrophils % (auto) 91.3 %
[2019-11-10 02:11] LABS: Albumin Level 2.4 gm/dl (3.4-5.0); BUN Creatinine Ratio 24.6 (10-20); Calcium 9.2 mg/dl (8.5-10.1); Creatinine Clr Calc Pharmacy 41.7 ml/min; Est GFR (African American) 75.7; Est GFR (Non-African American) 65.3; Potassium 3.3 mmol/L (3.5-5.1)
[2019-11-10 02:23] LABS: Albumin Globulin Ratio 0.7 (0.9-2); Bilirubin,Total 1.1 mg/dl (0.2-1); Globulin 3.6 gm/dl (2.5-4.0); Thyroid Stimulating Hormone 0.963 uIu/ml (0.300-4.500)
--- NOTE | 2019-11-10 06:04 | Electrocardiogram Report ---
Test Reason : Blood Pressure : / mmHG Vent. Rate : 088 BPM Atrial Rate : 088 BPM P-R Int : 224 ms QRS Dur : 118 ms QT Int : 354 ms P-R-T Axes : 018 -56 001 degrees QTc Int : 428 ms Sinus rhythm with 1st degree A-V block Left anterior fascicular block Nonspecific T wave abnormality Abnormal ECG When compared with ECG of 19-NOV-2018 17:26, Nonspecific T wave abnormality is now Present Confirmed by Aj Prado ([id number]) on 11/10/2019 6:04:33 AM Referred By: REFERRED SELF Confirmed By:Aj Prado
[2019-11-10] MEDS: BUDESONIDE/FORMOTEROL FUMARATE 160/4.5 60 PUFFS/INHALER INH SCH ×2 (07:40→19:54)
[2019-11-10] MEDS: FUROSEMIDE 20 MG in SYRINGE 0 ML IV SCH ×2 (08:42→17:05)
[2019-11-10] MEDS: DOXYCYCLINE HYCLATE 100 MG in DEXTROSE 5% 100 ML IV SCH ×2 (08:42→19:54)
[2019-11-10] MEDS: methylPREDNISolone 20 MG in SYRINGE 0 ML IV SCH ×2 (08:42→19:54)
--- NOTE | 2019-11-10 11:40 | Hospitalist Progress Note ---
Date of Service November 10, 2019 Assessment & Plan (1) Pneumonia: Continue admission to telemetry Patient is slowly improving Vital signs every 4 hours Lactic acid 1.8--.3.5--.2.9, since patient is feeling better no need to repeat lactic acid anymore. Monitor electrolytes and replenish Patient was given vancomycin, piperacillin, levofloxacin in the ER. He received 2250 mils of on normal saline and hydrocortisone sodium 100 mg IV, level butyryl 1.25 mg nebs x3 [facility]rival to the [facility] patient on ceftriaxone 2 g IV daily with doxycycline 100 mg IV twice daily Duo nebs every 4 hours scheduled and as needed per RT Blood culture, urine culture and sputum pending Continue Solu-Medrol 40 mg IV twice daily Chest x-ray is referring to possible pulmonary edema. Continue Lasix 20 IV twice daily. Titrate up as needed to achieve diuresis of 1 to 1.5 L/day. 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 (2) Hypotension: Resolved. Now patient became hypertensive again. His blood pressure is 176/86. Restarted lisinopril 10 mg p.o. daily. Monitor blood pressure every 4 hours (3) Acute respiratory failure: As discussed above, continue supplemental oxygen and keep oxygenation above 92% (4) Elevated troponin: Appears to be due to demand ischemia Trending down Continue trending down troponin with EKG Patient denies chest pain TTE : Normal left ventricular size with hyperdynamic systolic function. Ejection fraction 70%. No regional wall motion abnormalities. Mild concentric left ventricular hypertrophy. Sclerotic aortic valve without significant issac nosis. Trace aortic regurgitation. Mild pulmonary hypertension. Estimated RVSP 39. Subjective Patient seen and examined at the bedside. Sitting up in the bed and having breakfast. His daughter is next to his bedside. Patient is now on 2 L of supplemental oxygen which is improvement from yesterday. Patient appears much better in comparison to yesterday. Patient is a poor historian. Patient denies fever, chills, chest pain, shortness of breath, abdominal pain, frequency, urgency. Review of Systems Review of Systems: All systems reviewed & are unremarkable except as noted in HPI & below Physical Exam Constitutional: WD/WN, vitals as above well developed and + cachectic Eyes: PERRL, conjunctivae normal, anicteric sclerae ENMT: external ear and nose normal, oropharynx normal Neck: trachea midline, no thyromegaly Respiratory: normal respiratory effort; no respiratory distress and no labored breathing Auscultation: + crackles (Improving) and + wheezes (Improving) Cardiovascular: Heart Sounds: normal S1 and normal S2 Palpation: + palpable S3 Gastrointestinal (Abdomen): normal bowel sounds, soft, nontender, no hepatosplenomegaly Musculoskeletal: no cyanosis or clubbing, extremities motor strength 5/5 Neurologic: patellar DTR's 2+ bilat, sensation intact Psychiatric: A+Ox3, euthymic affect Lymphatic: no cervical or axillary lymphadenopathy Results & Data Vital Signs (Past 12 Hours) Vital Signs Temp Pulse Pulse Resp BP Pulse Ox 11/10/19 08:00 62 11/10/19 06:48 36.6 C 64 19 129/67 93 11/10/19 04:15 36.5 C 67 12 161/74 H 92 PG Care Time/CCT Total # of Minutes Spent Total Time Spent with Patient: Total time spent is greater than 50% in coordination of care (as documented) at patient's floor/unit and/or counseling patient: (1) Acute respiratory failure Respiratory failure complication: hypoxia Qualified Code(s): J96.01 - Acute respiratory failure with hypoxia (2) Hypotension Hypotension type: unspecified hypotension type Qualified Code(s): I95.9 - Hypotension, unspecified (3) Pneumonia Laterality: unspecified laterality Lung location: unspecified part of lung Pneumonia type: due to unspecified organism Qualified Code(s): J18.9 - Pneumonia, unspecified organism
[2019-11-10] MEDS: cefTRIAXone SODIUM 2,000 MG in DEXTROSE 5% 50 ML IV SCH (19:54)
[2019-11-10] MEDS: lisinopriL 10 MG TAB PO SCH (20:14)
[2019-11-11 06:41] LABS: Hematocrit (blood only) 37.2 % (42-52); Hemoglobin 12.6 g/dL (14.0-18.0); Mean Corpuscular Hemoglobin 31.1 pg (25-34); Mean Corpuscular Hgb Conc 33.9 g/dL (32-36); Mean Corpuscular Volume 91.9 fL (80-100); Mean Platelet Volume 9.9 fL (7.4-10.4); Platelet Count 321 K/uL (130-400); RDW Coefficient of Variation 14.5 % (11.5-14.5); Red Blood Count 4.05 M/uL (4.7-6.1); White Blood Count 25.67 K/uL (4.8-10.8)
[2019-11-11 06:58] LABS: Basophils # (auto) 0.01 K/uL (0-0.2); Immature Granulocytes # (auto) 0.11 K/uL (0.00-0.02); Immature Granulocytes % (auto) 0.4 %; Lymphocytes # (auto) 1.07 K/uL (1.2-3.4); Lymphocytes % (auto) 4.2 %; Monocytes # (auto) 1.34 K/uL (0.11-0.59); Monocytes % (auto) 5.2 %; Neutrophils # (auto) 23.14 K/uL (1.4-6.5); Neutrophils % (auto) 90.2 %
[2019-11-11 07:13] LABS: Albumin Level 2.6 gm/dl (3.4-5.0); BUN Creatinine Ratio 29.5 (10-20); Calcium 10.1 mg/dl (8.5-10.1); Creatinine Clr Calc Pharmacy 26.8 ml/min; Est GFR (African American) 46.4; Potassium 3.2 mmol/L (3.5-5.1)
[2019-11-11 07:18] LABS: Albumin Globulin Ratio 0.7 (0.9-2); Bilirubin,Total 0.6 mg/dl (0.2-1); Globulin 3.9 gm/dl (2.5-4.0); Total Protein 6.5 gm/dl (6.4-8.2)
[2019-11-11] MEDS ORDERED: POTASSIUM CHLORIDE 20 MEQ TABCR PO STA (08:25)
[2019-11-11] MEDS: DOXYCYCLINE HYCLATE 100 MG in DEXTROSE 5% 100 ML IV SCH ×2 (09:30→20:54)
[2019-11-11] MEDS: lisinopriL 10 MG TAB PO SCH (09:30)
[2019-11-11] MEDS: methylPREDNISolone 20 MG in SYRINGE 0 ML IV SCH ×2 (09:31→20:13)
[2019-11-11] MEDS: BUDESONIDE/FORMOTEROL FUMARATE 160/4.5 60 PUFFS/INHALER INH SCH ×2 (09:31→20:13)
[2019-11-11] MEDS ORDERED: ONDANSETRON INJ 2 MG/ML 2 ML VIAL IV PRN (10:56)
[2019-11-11] MEDS ORDERED: PROMETHAZINE HCL 25 MG in SODIUM CHLORIDE 0.9% 50 ML IV PRN (11:15)
--- NOTE | 2019-11-11 18:15 | Hospitalist Progress Note ---
Date of Service November 11, 2019 Assessment & Plan (1) Pneumonia: Continue admission to telemetry Patient is slowly improving Vital signs every 4 hours Lactic acid 1.8--.3.5--.2.9, since patient is feeling better no need to repeat lactic acid anymore. Monitor electrolytes and replenish Patient was given vancomycin, piperacillin, levofloxacin in the ER. He received 2250 mils of on normal saline and hydrocortisone sodium 100 mg IV, level butyryl 1.25 mg nebs x3 [facility]rival to [facility] patient on ceftriaxone 2 g IV daily with doxycycline 100 mg IV twice daily Duo nebs every 4 hours scheduled and as needed per RT Blood culture, urine culture and sputum pending Continue Solu-Medrol 40 mg IV twice daily Chest x-ray is referring to possible pulmonary edema. Continue Lasix 20 IV twice daily. Titrate up as needed to achieve diuresis of 1 to 1.5 L/day. 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 (2) Hypotension: Resolved. Now patient became hypertensive again. His blood pressure is 176/86. Restarted lisinopril 10 mg p.o. daily. Monitor blood pressure every 4 hours (3) Acute respiratory failure: As discussed above, continue supplemental oxygen and keep oxygenation above 92% (4) Elevated troponin: Appears to be due to demand ischemia Trending down Continue trending down troponin with EKG Patient denies chest pain TTE : Normal left ventricular size with hyperdynamic systolic function. Ejection fraction 70%. No regional wall motion abnormalities. Mild concentric left ventricular hypertrophy. Sclerotic aortic valve without significant issac nosis. Trace aortic regurgitation. Mild pulmonary hypertension. Estimated RVSP 39. Subjective Patient seen and examined at the bedside. Sitting up in the bed and having breakfast. His daughter is next to his bedside. Patient is now on 2 L of supplemental oxygen which is improvement from yesterday. Patient appears much better in comparison to yesterday. Patient is a poor historian. Patient denies fever, chills, chest pain, shortness of breath, abdominal pain, frequency, urgency. Review of Systems Review of Systems: All systems reviewed & are unremarkable except as noted in HPI & below Physical Exam Constitutional: WD/WN, vitals as above well developed and + cachectic Eyes: PERRL, conjunctivae normal, anicteric sclerae ENMT: external ear and nose normal, oropharynx normal Neck: trachea midline, no thyromegaly Respiratory: normal respiratory effort; no respiratory distress and no labored breathing Auscultation: + crackles (Improving) and + wheezes (Improving) Cardiovascular: Heart Sounds: normal S1 and normal S2 Palpation: + palpable S3 Gastrointestinal (Abdomen): normal bowel sounds, soft, nontender, no hepatosplenomegaly Musculoskeletal: no cyanosis or clubbing, extremities motor strength 5/5 Neurologic: patellar DTR's 2+ bilat, sensation intact Psychiatric: A+Ox3, euthymic affect Lymphatic: no cervical or axillary lymphadenopathy Results & Data Vital Signs (Past 12 Hours) Vital Signs Temp Pulse Pulse Pulse Resp BP BP 11/11/19 16:00 37 C 86 18 140/75 11/11/19 12:00 36.7 C 76 20 173/75 H 11/11/19 08:00 36.6 C 82 72 16 162/79 H Pulse Ox 11/11/19 16:00 95 11/11/19 12:00 96 11/11/19 08:00 98 PG Care Time/CCT Total # of Minutes Spent Total Time Spent with Patient: Total time spent is greater than 50% in coordination of care (as documented) at patient's floor/unit and/or counseling patient: (1) Acute respiratory failure Respiratory failure complication: hypoxia Qualified Code(s): J96.01 - Acute respiratory failure with hypoxia (2) Hypotension Hypotension type: unspecified hypotension type Qualified Code(s): I95.9 - Hypotension, unspecified (3) Pneumonia Laterality: unspecified laterality Lung location: unspecified part of lung Pneumonia type: due to unspecified organism Qualified Code(s): J18.9 - Pneumonia, unspecified organism
[2019-11-11] MEDS: cefTRIAXone SODIUM 2,000 MG in DEXTROSE 5% 50 ML IV SCH (20:12)
[2019-11-12 07:20] LABS: Hematocrit (blood only) 31.6 % (42-52); Hemoglobin 10.6 g/dL (14.0-18.0); Immature Granulocytes # (auto) 0.04 K/uL (0.00-0.02); Immature Granulocytes % (auto) 0.2 %; Lymphocytes # (auto) 0.74 K/uL (1.2-3.4); Lymphocytes % (auto) 4.3 %; Mean Corpuscular Hemoglobin 30.7 pg (25-34); Mean Corpuscular Hgb Conc 33.5 g/dL (32-36); Mean Corpuscular Volume 91.6 fL (80-100); Mean Platelet Volume 9.3 fL (7.4-10.4); Monocytes # (auto) 0.84 K/uL (0.11-0.59); Monocytes % (auto) 4.8 %; Neutrophils # (auto) 15.75 K/uL (1.4-6.5); Neutrophils % (auto) 90.7 %; Platelet Count 261 K/uL (130-400); RDW Coefficient of Variation 14.8 % (11.5-14.5); Red Blood Count 3.45 M/uL (4.7-6.1); White Blood Count 17.37 K/uL (4.8-10.8)
[2019-11-12 07:59] LABS: Albumin Level 2.2 gm/dl (3.4-5.0); BUN Creatinine Ratio 22.1 (10-20); Calcium 9.4 mg/dl (8.5-10.1); Creatinine Clr Calc Pharmacy 13.8 ml/min; Est GFR (African American) 20.7; Est GFR (Non-African American) 17.9
[2019-11-12 08:00] LABS: Albumin Globulin Ratio 0.6 (0.9-2); Bilirubin,Total 0.5 mg/dl (0.2-1); Globulin 3.4 gm/dl (2.5-4.0); Total Protein 5.6 gm/dl (6.4-8.2)
--- NOTE | 2019-11-12 08:51 | Hospitalist Progress Note ---
Date of Service November 12, 2019 Assessment & Plan (1) Pneumonia: Continue admission to telemetry Patient is appears clinically improved Vital signs every 4 hours Lactic acid 1.8--.3.5--.2.9, since patient is feeling better no need to repeat lactic acid anymore. Monitor electrolytes and replenish Patient was given vancomycin, piperacillin, levofloxacin in the ER. He received 2250 mils of on normal saline and hydrocortisone sodium 100 mg IV, level butyryl 1.25 mg nebs x3 On [facility] pt was started on ceftriaxone 2 g IV daily with doxycycline 100 mg IV twice daily Doxycycline switched to 100 mg PO BID. Continue antibiotics for total 7 days(today #3) Duo nebs every 4 hours scheduled and as needed per RT Blood culture-no growth in in 48 h x 2, wound cultures grew Staph aureus MRSA, and sputum heavy normal zahra. Solu-Medrol 40 mg IV twice daily switched to Prednisone 40 mg daily for 2 additional days. Chest x-ray is referring to possible pulmonary edema. Pt was given Lasix 20 IV twice daily then stopped since his renal function was worsening. 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 (2) Hypotension: Resolved. Now patient became hypertensive again. Now pt is hypertensive. We had to hold home dose of lisinopril 10 mg PO daily due to acute kidney injury. Instead will start Hydralazine 10 mg PO QID for SBP>160 and DBP>90. Monitor blood pressure every 4 hours (3) Acute respiratory failure: Resolved (4) Elevated troponin: Appears to be due to demand ischemia Trended down 0.058-->0.044 Patient denies chest pain TTE : Normal left ventricular size with hyperdynamic systolic function. Ejection fraction 70%. No regional wall motion abnormalities. Mild concentric left ventricular hypertrophy. Sclerotic aortic valve without significant stenosis. Trace aortic regurgitation. Mild pulmonary hypertension. Estimated RVSP 39. (5) Sepsis associated hypotension: Resolved now. Management was already discussed above. Present on Admission?: Yes (6) Acute kidney injury (SAM) with acute tubular necrosis (ATN): Likely multifactorial, pt was septic, hypotensive, dehydrated, received Vancomycin. Baseline creatinine is normal 1.02 with GFR of 65.3. It increased to 1.53/40--> 2.98/17.9. Avoid all nephrotoxic agents. Continue monitoring creatinine and GFR. 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 Per his family members patient's ability to walk is deteriorating every day. His daughter and son live in [place]. They would like eventually to take their father to [place]. At this point they believe that patient will not be able to function on his own at home since he is weak and prone to falls. Subjective Patient seen and examined at the bedside. Patient is doing much better today. Sitting up in the bed and having breakfast. His daughter is next to his bedside. Patient is off of oxygen today and 92% on room air. Patient daughter is hoping that patient will be discharged to long-term facility because he lives by himself and brought daughter and son live in [place]. Eventually they are planning to transfer their dad over there. 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 This morning he was alert and oriented in person and he had some short conversation. Patient denies fever, chills, chest pain, shortness of breath, abdominal pain, frequency, urgency. Review of Systems Review of Systems: All systems reviewed & are unremarkable except as noted in HPI & below Physical Exam Constitutional: WD/WN, vitals as above well developed and + cachectic Eyes: PERRL, conjunctivae normal, anicteric sclerae ENMT: external ear and nose normal, oropharynx normal Neck: trachea midline, no thyromegaly Respiratory: normal respiratory effort; no respiratory distress and no labored breathing Auscultation: no crackles (Improving) and no wheezes (Improving) Cardiovascular: Heart Sounds: normal S1 and normal S2 Palpation: + palpable S3 Gastrointestinal (Abdomen): normal bowel sounds, soft, nontender, no hepatosplenomegaly Musculoskeletal: no cyanosis or clubbing, extremities motor strength 5/5 Neurologic: patellar DTR's 2+ bilat, sensation intact Psychiatric: A+Ox3, euthymic affect Lymphatic: no cervical or axillary lymphadenopathy Results & Data Vital Signs (Past 12 Hours) Vital Signs Temp Pulse Pulse Resp BP Pulse Ox 11/12/19 03:10 36.6 C 80 18 145/75 H 96 11/11/19 23:26 37.1 C 62 18 152/74 H 97 11/11/19 23:15 73 PG Care Time/CCT Total # of Minutes Spent Total Time Spent with Patient: Total time spent is greater than 50% in coordination of care (as documented) at patient's floor/unit and/or counseling patient: (1) Acute respiratory failure Respiratory failure complication: hypoxia Qualified Code(s): J96.01 - Acute respiratory failure with hypoxia (2) Hypotension Hypotension type: unspecified hypotension type Qualified Code(s): I95.9 - Hypotension, unspecified (3) Pneumonia Laterality: unspecified laterality Lung location: unspecified part of lung Pneumonia type: due to unspecified organism Qualified Code(s): J18.9 - Pneumonia, unspecified organism
[2019-11-12] MEDS: BUDESONIDE/FORMOTEROL FUMARATE 160/4.5 60 PUFFS/INHALER INH SCH ×2 (09:09→20:23)
[2019-11-12] MEDS: BACITRACIN OINT 15 GM TUBE TOP SCH (09:09)
[2019-11-12] MEDS: SODIUM CHLORIDE 0.9% 1000ML 1,000 ML IV SCH ×2 (09:10→17:28)
[2019-11-12] MEDS: DOXYCYCLINE HYCLATE 100 MG in DEXTROSE 5% 100 ML IV SCH (09:10)
[2019-11-12] MEDS: methylPREDNISolone 20 MG in SYRINGE 0 ML IV SCH (10:28)
[2019-11-12] MEDS: lisinopriL 10 MG TAB PO SCH (10:28)
[2019-11-12] MEDS ORDERED: SODIUM CHLORIDE 0.9% 1000ML 500 ML IV ONE (18:21)
[2019-11-12 19:13] LABS: BUN Creatinine Ratio 29.9 (10-20); Calcium 9.9 mg/dl (8.5-10.1); Creatinine Clr Calc Pharmacy 23.3 ml/min; Est GFR (African American) 38.9; Est GFR (Non-African American) 33.5; Potassium 3.9 mmol/L (3.5-5.1)
[2019-11-12] MEDS: cefTRIAXone SODIUM 2,000 MG in DEXTROSE 5% 50 ML IV SCH (20:18)
[2019-11-12] MEDS: DOXYCYCLINE HYCLATE 100 MG CAP PO SCH (20:24)
[2019-11-13] MEDS: HydrALAZINE 10 MG TAB PO PRN ×2 (03:59→08:25)
[2019-11-13 07:56] LABS: Basophils # (auto) 0.02 K/uL (0-0.2); Basophils % (auto) 0.2 %; Hematocrit (blood only) 34.3 % (42-52); Hemoglobin 11.4 g/dL (14.0-18.0); Immature Granulocytes # (auto) 0.12 K/uL (0.00-0.02); Lymphocytes # (auto) 0.76 K/uL (1.2-3.4); Lymphocytes % (auto) 6.1 %; Mean Corpuscular Hemoglobin 30.5 pg (25-34); Mean Corpuscular Hgb Conc 33.2 g/dL (32-36); Mean Corpuscular Volume 91.7 fL (80-100); Mean Platelet Volume 9.5 fL (7.4-10.4); Monocytes # (auto) 1.71 K/uL (0.11-0.59); Monocytes % (auto) 13.7 %; Neutrophils # (auto) 9.86 K/uL (1.4-6.5); Platelet Count 247 K/uL (130-400); RDW Coefficient of Variation 14.6 % (11.5-14.5); RDW Standard Deviation 48.8 fL (36.4-46.3); Red Blood Count 3.74 M/uL (4.7-6.1); White Blood Count 12.47 K/uL (4.8-10.8)
[2019-11-13] MEDS: DOXYCYCLINE HYCLATE 100 MG CAP PO SCH ×2 (08:25→19:51)
[2019-11-13] MEDS: predniSONE 20 MG TAB PO SCH (08:25)
[2019-11-13] MEDS: BACITRACIN OINT 15 GM TUBE TOP SCH (08:26)
[2019-11-13] MEDS: BUDESONIDE/FORMOTEROL FUMARATE 160/4.5 60 PUFFS/INHALER INH SCH ×2 (08:26→19:50)
[2019-11-13 08:31] LABS: Albumin Level 2.3 gm/dl (3.4-5.0); BUN Creatinine Ratio 43.1 (10-20); Calcium 10.2 mg/dl (8.5-10.1); Creatinine Clr Calc Pharmacy 46.1 ml/min; Est GFR (African American) 88.5; Est GFR (Non-African American) 76.3; Potassium 3.6 mmol/L (3.5-5.1)
[2019-11-13 08:34] LABS: Albumin Globulin Ratio 0.7 (0.9-2); Bilirubin,Total 0.6 mg/dl (0.2-1); Globulin 3.5 gm/dl (2.5-4.0); Total Protein 5.8 gm/dl (6.4-8.2)
[2019-11-13] MEDS: cefTRIAXone SODIUM 2,000 MG in DEXTROSE 5% 50 ML IV SCH (19:51)
--- NOTE | 2019-11-13 20:40 | Hospitalist Progress Note ---
Date of Service November 13, 2019 Assessment & Plan (1) Sepsis: 2nd to pneumonia sepsis resolved (2) Acute respiratory failure: 2nd to pneumonia. stable on NC O2. WBC count improving. no fevers. cont IV abx & supportive care. had been on steroids - ?bronchitis/wheezing? - now tapering off. (3) Pneumonia: b/l. repeat cxr in am. day #4 of IV rocephin with doxy. treating for community-acquired pneumonia. will inquire w/ staff about any concerns of aspiration/dysphagia. blood cx's negative. (4) Sepsis associated hypotension: resolved (5) Elevated troponin: myocardial demand ischemia in setting of sepsis/pneumonia no ACS echo w/o wall motion abnormalities (6) Acute kidney injury (SAM) with acute tubular necrosis (ATN): either 2nd to diuresis for initial concern of volume overload vs sepsis; favor former now resolved (7) SDH (subdural hematoma): history of 04/2019 CT head with such (8) Abnormal stool color: check fecal occult blood send c.diff as well cbc am (9) Altered mental status: baseline mental status?? will need to check with family he was confused and not oriented during my visit today (10) DVT prophylaxis: chemical means deferred due to prior SDH SCDs dispo planning (SNF level) Subjective patient resting comfortably during the visit. he is poor historian and was confused. could not tell me the date or year. denied any cough or dyspnea. staff reported to me late in the day that the stools at times were diarrhea and very dark - ?melena. tele overnight wnl. Review of Systems Review of Systems: Unobtainable due to cognitive status Physical Exam Constitutional: + thin and + altered mental status; + not well developed, + not well nourished and no acute distress ENMT: external ear and nose normal, oropharynx normal Respiratory: no respiratory distress Auscultation: + crackles (extensive b/l ); no wheezes Cardiovascular: Rate/Rhythm: regular rate and regular rhythm Heart Sounds: normal S1 and normal S2; no murmur Vessels: posterior tibial pulses present and dorsalis pedis pulses present; no JVD Extremities: no edema Gastrointestinal (Abdomen): normal bowel sounds, soft, nontender, no hepatosplenomegaly Inspection/Auscultation: + abdomen distended (suprapubic region - ?bladder? lipoma? hernia?) Psychiatric: Orientation: alert and oriented to person; + not oriented to time Results & Data Vital Signs (Past 12 Hours) Vital Signs Temp Pulse Pulse Resp BP Pulse Ox 11/13/19 19:27 36.9 C 71 18 154/81 H 96 11/13/19 16:00 96 H 11/13/19 15:30 36.9 C 89 18 142/77 H 91 11/13/19 14:56 93 11/13/19 11:00 37.1 C 84 20 133/58 L 90 Laboratory Results Laboratory Results - last 24 hr 11/13/19 11/13/19 07:33 07:33 WBC 12.47 H RBC 3.74 L Hgb 11.4 L Hct 34.3 L MCV 91.7 MCH 30.5 MCHC 33.2 RDW Std Deviation 48.8 H RDW Coeff of Radha 14.6 H Plt Count 247 MPV 9.5 Immature Gran % (Auto) 1.0 Neut % (Auto) 79.0 Lymph % (Auto) 6.1 Holt % (Auto) 13.7 Eos % (Auto) 0.0 Baso % (Auto) 0.2 Immature Gran # (Auto) 0.12 H Neut # (Auto) 9.86 H Lymph # (Auto) 0.76 L Holt # (Auto) 1.71 H Eos # (Auto) 0.00 Baso # (Auto) 0.02 Sodium 142 Potassium 3.6 Chloride 109 H Carbon Dioxide 30 Anion Gap 3.0 BUN 38 H Creatinine 0.89 D Est Cr Clr Drug Dosing 46.1 Est GFR ( Amer) 88.5 Est GFR (Non-Af Amer) 76.3 BUN/Creatinine Ratio 43.1 H Glucose 102 H Calcium 10.2 H Total Bilirubin 0.6 AST 17 ALT 31 Alkaline Phosphatase 130 H Total Protein 5.8 L Albumin 2.3 L Globulin 3.5 Albumin/Globulin Ratio 0.7 L PG Care Time/CCT Total # of Minutes Spent Total Time Spent with Patient: Total time spent is greater than 50% in coordination of care (as documented) at patient's floor/unit and/or counseling patient: (1) Acute respiratory failure Respiratory failure complication: hypoxia Qualified Code(s): J96.01 - Acute respiratory failure with hypoxia (2) Pneumonia Laterality: unspecified laterality Lung location: unspecified part of lung Pneumonia type: due to unspecified organism Qualified Code(s): J18.9 - Pneumonia, unspecified organism
[2019-11-14 08:18] LABS: Basophils # (auto) 0.06 K/uL (0-0.2); Basophils % (auto) 0.5 %; Eosinophils # (auto) 0.01 K/uL (0-0.5); Eosinophils % (auto) 0.1 %; Hematocrit (blood only) 37.5 % (42-52); Hemoglobin 12.7 g/dL (14.0-18.0); Immature Granulocytes # (auto) 0.38 K/uL (0.00-0.02); Lymphocytes # (auto) 0.92 K/uL (1.2-3.4); Lymphocytes % (auto) 7.3 %; Mean Corpuscular Hemoglobin 31.1 pg (25-34); Mean Corpuscular Hgb Conc 33.9 g/dL (32-36); Mean Corpuscular Volume 91.9 fL (80-100); Mean Platelet Volume 9.7 fL (7.4-10.4); Monocytes # (auto) 2.17 K/uL (0.11-0.59); Monocytes % (auto) 17.3 %; Neutrophils # (auto) 8.98 K/uL (1.4-6.5); Neutrophils % (auto) 71.8 %; Platelet Count 241 K/uL (130-400); RDW Coefficient of Variation 14.3 % (11.5-14.5); RDW Standard Deviation 48.2 fL (36.4-46.3); Red Blood Count 4.08 M/uL (4.7-6.1); White Blood Count 12.52 K/uL (4.8-10.8)
[2019-11-14 08:55] LABS: BUN Creatinine Ratio 33.5 (10-20); Calcium 9.8 mg/dl (8.5-10.1); Creatinine Clr Calc Pharmacy 54.7 ml/min; Est GFR (African American) 95.5; Est GFR (Non-African American) 82.4; Potassium 3.3 mmol/L (3.5-5.1)
[2019-11-14] MEDS: DOXYCYCLINE HYCLATE 100 MG CAP PO SCH ×2 (09:16→20:24)
--- NOTE | 2019-11-14 09:16 | XRay Report ---
XR chest 2V PA/lateral CLINICAL HISTORY: 89 years-old Male presenting with pneumonia; interval change. TECHNIQUE: Portable upright AP view of the chest was obtained. COMPARISON: 11/09/2019. FINDINGS: Cardiac silhouette mildly enlarged. Added density of the right lung with fine reticular opacities dif fusely in the right lung. No large pleural effusion or pneumothorax. The left lung is grossly clear. Hilar prominence, right greater than left. Osteopenia. Degenerative changes of the spine with mild sc oliosis. Upper abdomen normal. IMPRESSION: 1. Diffuse right lung reticular infiltrates. These appear increased from prior exam. Worsening pneum onia to be considered. 2. Hilar prominence, right greater than left, possibly vascular or related to underlying lymphadenop athy. 3. Mild cardiomegaly. ACT 112: Negative or not required by law. Electronically signed by: Marin Forrest M.D. 11/14/2019 9:15 AM
[2019-11-14] MEDS: predniSONE 20 MG TAB PO SCH (09:17)
[2019-11-14] MEDS: BUDESONIDE/FORMOTEROL FUMARATE 160/4.5 60 PUFFS/INHALER INH SCH ×2 (09:17→20:24)
[2019-11-14] MEDS: BACITRACIN OINT 15 GM TUBE TOP SCH (09:17)
--- NOTE | 2019-11-14 16:55 | CT Scan Report ---
CT head/brain wo con CT DOSE: 614.27 mGy.cm HISTORY: h/o prior L SDH; confusion; eval [facility] TECHNIQUE: Multiaxial CT images of the head were performed without the use of intravenous contrast. A dose lowering technique was utilized adhering to the principles of ALARA. Comparison: 05/27/2019 Findings: Small unchanged left chronic subdural hematoma on the left frontal region. Currently is cla ssified versus hygroma. No new or interval findings. Chronic and age-related atrophy and chronic small vessel change. The sydnie varium and skull base are intact. The ventricles and sulci are within normal limits. There is no mass , hematoma, midline shift, or acute infarct. Impression: 1. No acute intracranial hemorrhage. 2. Small chronic left frontal subdural hematoma. 3. No new or interval findings. ACT 112: Negative or not required by law. The above report was generated using voice recognition software. It may contain grammatical, syntax or spelling errors. Electronically signed by: Beka Flores M.D. 11/14/2019 4:54 PM
--- NOTE | 2019-11-14 19:49 | Hospitalist Progress Note ---
Date of Service November 14, 2019 Assessment & Plan (1) Sepsis: 2nd to pneumonia sepsis resolved (2) Acute respiratory failure: 2nd to pneumonia - largely right-sided. stable on NC O2. repeat cxr today with modestly worse right-sided infiltrates. obtained speech therapy consult - he is indeed aspirating thus pneumonia could be from such. discussed cxr, speech consult, etc with daughter. cont IV abx at least 1 more day given slow improvement. had been on steroids - ?bronchitis/wheezing? - now tapering off. is on 40mg. give 1 more day of 40mg then taper to 30mg on Monday. (3) Pneumonia: b/l but much worse on right. day #5 of IV rocephin with doxy. treating for community-acquired pneumonia. s/p speech consultation - this could be aspiration pneumonia as well. he is MRSA positive but I don't suspect it is MRSA pneumonia. either way he is making slow progress. blood cx's negative. (4) Sepsis associated hypotension: resolved (5) Elevated troponin: myocardial demand ischemia in setting of sepsis/pneumonia no ACS echo w/o wall motion abnormalities (6) Acute kidney injury (SAM) with acute tubular necrosis (ATN): either 2nd to diuresis for initial concern of volume overload vs sepsis; favor former now resolved (7) SDH (subdural hematoma): 10/2018 s/p evacuation 04/2019 CT head with stable L sided residual SDH due to mental status change I obtained CT head today - no recurrent SDH or other new pathology (old SDH again seen but no change) (8) Abnormal stool color: checked fecal occult blood - was +, but H/H stable today remains on IV zantac cont 1 more day if H/H stable then transition zantac to PO tomorrow cbc am (9) Altered mental status: metabolic encephalopathy/hospital psychosis in setting of likely an underlying cognitive impairment/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 was not able to offer any meaningful history or ROS today. staff report confusion throughout the day. pulling at giordano at times. tele stable/NSR overnight. met with pt and his daughter during a 2nd visit later in day. daughter extensively updated. she confirmed that since his SDH and evacuation early in 2019 he has "good day and bad days". she was referring to his mental status - on the bad days he is forgetful, not oriented, etc. she also confirmed he had had falls prior to this hospital stay. Review of Systems Review of Systems: Unobtainable due to cognitive status Physical Exam Constitutional: + thin and + altered mental status; + not well developed, + not well nourished and no acute distress ENMT: external ear and nose normal, oropharynx normal Respiratory: no respiratory distress Auscultation: + crackles (extensive - R>L); no wheezes Cardiovascular: Rate/Rhythm: regular rate and regular rhythm Heart Sounds: normal S1 and normal S2; no murmur Vessels: posterior tibial pulses present and dorsalis pedis pulses present; no JVD Extremities: no edema Gastrointestinal (Abdomen): normal bowel sounds, soft, nontender, no hepatosplenomegaly Inspection/Auscultation: + abdomen distended (suprapubic region - lipoma? hernia?) Psychiatric: Orientation: alert and oriented to person; + not oriented to place and + not oriented to time Results & Data Vital Signs (Past 12 Hours) Vital Signs Temp Pulse Resp BP BP Pulse Ox 11/14/19 15:09 37.1 C 85 18 138/75 94 11/14/19 11:35 37.2 C 80 18 136/84 97 Laboratory Results Laboratory Results - last 24 hr 11/13/19 11/13/19 11/13/19 23:30 23:30 23:30 WBC RBC Hgb Hct MCV MCH MCHC RDW Std Deviation RDW Coeff of Radha Plt Count MPV Immature Gran % (Auto) Neut % (Auto) Lymph % (Auto) [place] % (Auto) Eos % (Auto) Baso % (Auto) Immature Gran # (Auto) Neut # (Auto) Lymph # (Auto) [place] # (Auto) Eos # (Auto) Baso # (Auto) Sodium Potassium Chloride Carbon Dioxide Anion Gap BUN Creatinine Est Cr Clr Drug Dosing Est GFR ( Amer) Est GFR (Non-Af Amer) BUN/Creatinine Ratio Glucose Calcium Stool Occult Bld Scrn Cancelled Positive A Stl C. diff Tox B Gene TNP 11/14/19 11/14/19 08:02 08:02 WBC 12.52 H RBC 4.08 L Hgb 12.7 L Hct 37.5 L MCV 91.9 MCH 31.1 MCHC 33.9 RDW Std Deviation 48.2 H RDW Coeff of Radha 14.3 Plt Count 241 MPV 9.7 Immature Gran % (Auto) 3.0 Neut % (Auto) 71.8 Lymph % (Auto) 7.3 [place] % (Auto) 17.3 Eos % (Auto) 0.1 Baso % (Auto) 0.5 Immature Gran # (Auto) 0.38 H Neut # (Auto) 8.98 H Lymph # (Auto) 0.92 L [place] # (Auto) 2.17 H Eos # (Auto) 0.01 Baso # (Auto) 0.06 Sodium 139 Potassium 3.3 L Chloride 105 Carbon Dioxide 31 Anion Gap 3.0 BUN 25 H Creatinine 0.74 Est Cr Clr Drug Dosing 54.7 Est GFR ( Amer) 95.5 Est GFR (Non-Af Amer) 82.4 BUN/Creatinine Ratio 33.5 H Glucose 90 Calcium 9.8 Stool Occult Bld Scrn Stl C. diff Tox B Gene Diagnostic Findings CT head neg for ICH; old Left frontal SDH PG Care Time/CCT Total # of Minutes Spent Total Time Spent with Patient: Total time spent is greater than 50% in coordination of care (as documented) at patient's floor/unit and/or counseling patient: (1) Acute respiratory failure Respiratory failure complication: hypoxia Qualified Code(s): J96.01 - Acute respiratory failure with hypoxia (2) Pneumonia Laterality: unspecified laterality Lung location: unspecified part of lung Pneumonia type: due to unspecified organism Qualified Code(s): J18.9 - Pneumonia, unspecified organism
[2019-11-14] MEDS: cefTRIAXone SODIUM 2,000 MG in DEXTROSE 5% 50 ML IV SCH (20:24)
[2019-11-15] MEDS ORDERED: ADENOSINE IV SOLN 3 MG/ML 2 ML VIAL IV STA ×2 (01:41)
[2019-11-15] MEDS ORDERED: ADENOSINE IV SOLN 3 MG/ML 2 ML VIAL IV ONE ×3 (01:42→01:43)
[2019-11-15] MEDS ORDERED: METOPROLOL TARTRATE 1 MG/ML VIAL IV ONE (01:48)
[2019-11-15] MEDS ORDERED: METOPROLOL TARTRATE 1 MG/ML VIAL IV STA (01:48)
--- NOTE | 2019-11-15 02:12 | Hospitalist Progress Note ---
Date of Service November 15, 2019 Assessment & Plan (1) SVT (supraventricular tachycardia): S: Received page from RN around 0115 regarding pt's HR in 140's. Was previously in ~70s-80s. Sudden onset as pt was in bed. Pt otherwise asymptomatic, denied any CP, palpitations, SOB, syncope or near syncope. Hemodynamically stable. Of note, pt with some mild confusion, but per RN this was what pt had been this hospitalization. O: Cardiac- tachycardic, no M/R/G. A/P: Stat EKG ordered showing SVT. Attempted carotid massage and vagal maneuvers unsuccessfully. Adenosine 6 mg IV given with return to NSR after ~30 sec, confirmed by EKG. HR into 80s-90s. Additional dose of 5mg Lopressor IV given. Pt HR improved into 60s. Pt with no additional complaints of CP, palpitations, SOB, syncope or near syncope. Remained hemodynamically stable. Results & Data Vital Signs (Past 12 Hours) Vital Signs Temp Pulse Pulse Pulse Resp BP BP 11/15/19 02:00 66 122/70 11/15/19 01:51 80 134/80 11/15/19 01:50 80 134/80 11/15/19 01:17 121/84 11/15/19 00:01 84 11/14/19 23:48 36.8 C 83 17 11/14/19 20:00 37.1 C 87 18 143/66 H 11/14/19 15:09 37.1 C 85 18 BP Pulse Ox 11/15/19 02:00 95 11/15/19 01:51 11/15/19 01:50 11/15/19 01:17 11/15/19 00:01 11/14/19 23:48 163/90 H 93 11/14/19 20:00 96 11/14/19 15:09 138/75 94 Resident Activity Tracking Resident Involvement: Resident Care Provided Care Provided: Adult Hospital Medicine
[2019-11-15 02:28] LABS: BUN Creatinine Ratio 33.2 (10-20); Calcium 9.2 mg/dl (8.5-10.1); Creatinine Clr Calc Pharmacy 68.5 ml/min; Est GFR (African American) 104.8; Est GFR (Non-African American) 90.4; Magnesium 2.1 mg/dl (1.8-2.4); Potassium 3.4 mmol/L (3.5-5.1)
[2019-11-15] MEDS ORDERED: POTASSIUM CHLORIDE 20 MEQ TABCR PO STA ×2 (02:36→09:29)
[2019-11-15] MEDS: DOXYCYCLINE HYCLATE 100 MG CAP PO SCH ×2 (07:55→22:14)
[2019-11-15] MEDS: BUDESONIDE/FORMOTEROL FUMARATE 160/4.5 60 PUFFS/INHALER INH SCH ×2 (07:55→21:25)
[2019-11-15] MEDS: predniSONE 20 MG TAB PO SCH (07:56)
[2019-11-15] MEDS: BACITRACIN OINT 15 GM TUBE TOP SCH (07:56)
--- NOTE | 2019-11-15 11:46 | Electrocardiogram Report ---
Test Reason : Blood Pressure : / mmHG Vent. 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 rate has increased BY 53 BPM Confirmed by Ezra Alcazar ([id number]) on 11/15/2019 11:45:52 AM Referred By: REFERRED SELF Confirmed By:Ezra Alcazar
--- NOTE | 2019-11-15 11:46 | Electrocardiogram Report ---
Test Reason : Blood Pressure : / mmHG Vent. 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
--- NOTE | 2019-11-15 11:47 | Electrocardiogram Report ---
Test Reason : Blood Pressure : / mmHG Vent. Rate : 084 BPM Atrial Rate : 084 BPM P-R Int : 222 ms QRS Dur : 120 ms QT Int : 378 ms P-R-T Axes : 042 -50 077 degrees QTc Int : 446 ms Sinus rhythm with 1st degree A-V block with occasional Premature ventricular complexes Left axis deviation Left ventricular hypertrophy with QRS widening Abnormal ECG When compared with ECG of 15-NOV-2019 01:36, Supraventricular tachycardia no longer present Premature ventricular complexes are now Present Vent. rate has decreased BY 58 BPM Confirmed by Ezra Alcazar ([id number]) on 11/15/2019 11:47:16 AM Referred By: REFERRED SELF Confirmed By:Ezra Alcazar
[2019-11-15] MEDS: TAMSULOSIN HCL 0.4 MG CAP PO SCH (17:53)
[2019-11-15] MEDS: FINASTERIDE 5 MG TAB PO SCH (17:54)
[2019-11-15] MEDS: LANSOPRAZOLE 30 MG SOLTAB PO SCH (17:54)
--- NOTE | 2019-11-15 20:40 | Hospitalist Progress Note ---
Date of Service November 15, 2019 Assessment & Plan (1) Sepsis: 2nd to pneumonia sepsis resolved (2) SVT (supraventricular tachycardia): s/p adenosine with resolution. echo this admission wnl. monitor on tele for recurrence. no symptoms from the SVT. replace low K. (3) Acute respiratory failure: resolved. 2nd to pneumonia. O2 weaned off. obtained speech therapy consult - he is indeed aspirating thus pneumonia could be from such. discussed cxr, speech consult, etc with daughter. day #7 of abx today - stop after today's doses. taper prednisone to 30mg/day. (4) Pneumonia: b/l but much worse on right. day #7 of IV rocephin with doxy. treating for community-acquired pneumonia. s/p speech consultation - this could be aspiration pneumonia as well. he is MRSA positive but I don't suspect it is MRSA pneumonia. blood cx's negative. stop abx after today's doses. (5) Sepsis associated hypotension: resolved (6) Elevated troponin: myocardial demand ischemia in setting of sepsis/pneumonia no ACS echo w/o wall motion abnormalities (7) Acute kidney injury (SAM) with acute tubular necrosis (ATN): resolved (8) SDH (subdural hematoma): 10/2018 s/p evacuation at [facility] 04/2019 CT head with stable L sided residual SDH CT head yesterday - no recurrent SDH or other new pathology (old SDH again seen but no change) (9) Abnormal stool color: checked fecal occult blood - was +, but H/H remain stable remains on IV zantac - will stop, change to PPI could easily have gastritis, etc. 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) supportive care for encephalopathy CT head as noted above avoid benzos/sedatives if possible (11) Cognitive impairment: baseline per daughter (12) Hypokalemia: replace repeat level am (13) Urinary retention: likely due to BPH start flomax start finasteride place giordano leave giordano for minimum of 1 week then trial of void then (14) DVT prophylaxis: chemical means deferred due to prior SDH SCDs dispo planning (SNF level) daughter to speak with other siblings about whether to simply allow "permissive" aspiration or change fluids to thickened leave on tele Subjective tele overnight - run of SVT - broke w/ adenosine. after conversion to NSR no further runs. had no symptoms during SVT. during visit he was laying in bed. could not tell me the year or month. didn't have complaints. staff report that after giordano removal yesterday he had significant urinary retention (close to 1000cc) and needed I/O cath. had retention again today - large amount - giordano placed once again. daughter at bedside -- update given. Review of Systems Review of Systems: Unobtainable due to cognitive status Physical Exam Constitutional: + thin and + altered mental status; + not well developed, + not well nourished and no acute distress ENMT: external ear and nose normal, oropharynx normal Respiratory: no respiratory distress Auscultation: + crackles (b/l but improved today ); no wheezes Cardiovascular: Rate/Rhythm: regular rate and regular rhythm Heart Sounds: normal S1 and normal S2; no murmur Vessels: posterior tibial pulses present and dorsalis pedis pulses present; no JVD Extremities: no edema Gastrointestinal (Abdomen): normal bowel sounds, soft, nontender, no hepatosplenomegaly Inspection/Auscultation: abdomen not distended (resolved; must have been urinary retention/bladder distension ) Psychiatric: Orientation: alert and oriented to person; + not oriented to place and + not oriented to time Results & Data Vital Signs (Past 12 Hours) Vital Signs Temp Pulse Pulse Resp BP Pulse Ox 11/15/19 20:25 36.4 C L 70 16 135/67 96 11/15/19 16:36 37.0 C 60 18 154/73 H 95 11/15/19 16:00 65 11/15/19 11:53 36.3 C L 61 18 126/65 95 Laboratory Results Laboratory Results - last 24 hr 11/15/19 01:57 Sodium 138 Potassium 3.4 L Chloride 105 Carbon Dioxide 31 Anion Gap 2.0 L BUN 19 H Creatinine 0.59 L Est Cr Clr Drug Dosing 68.5 Est GFR ( Amer) 104.8 Est GFR (Non-Af Amer) 90.4 BUN/Creatinine Ratio 33.2 H Glucose 100 H Calcium 9.2 Magnesium 2.1 PG Care Time/CCT Total # of Minutes Spent Total Time Spent with Patient: Total time spent is greater than 50% in coordination of care (as documented) at patient's floor/unit and/or counseling patient: (1) Acute respiratory failure Respiratory failure complication: hypoxia Qualified Code(s): J96.01 - Acute respiratory failure with hypoxia (2) Pneumonia Laterality: unspecified laterality Lung location: unspecified part of lung Pneumonia type: due to unspecified organism Qualified Code(s): J18.9 - Pneumonia, unspecified organism
[2019-11-15] MEDS: cefTRIAXone SODIUM 2,000 MG in DEXTROSE 5% 50 ML IV SCH (21:24)
[2019-11-16 07:19] LABS: Hematocrit (blood only) 34.2 % (42-52); Hemoglobin 11.3 g/dL (14.0-18.0); Mean Corpuscular Hemoglobin 30.4 pg (25-34); Mean Corpuscular Volume 91.9 fL (80-100); Mean Platelet Volume 9.7 fL (7.4-10.4); Platelet Count 236 K/uL (130-400); RDW Coefficient of Variation 14.2 % (11.5-14.5); RDW Standard Deviation 47.9 fL (36.4-46.3); Red Blood Count 3.72 M/uL (4.7-6.1); White Blood Count 13.99 K/uL (4.8-10.8)
[2019-11-16 07:50] LABS: BUN Creatinine Ratio 31.4 (10-20); Calcium 9.4 mg/dl (8.5-10.1); Creatinine Clr Calc Pharmacy 52.5 ml/min; Est GFR (African American) 94.9; Est GFR (Non-African American) 81.9; Potassium 3.8 mmol/L (3.5-5.1)
[2019-11-16] MEDS: LANSOPRAZOLE 30 MG SOLTAB PO SCH (09:23)
[2019-11-16] MEDS: DOXYCYCLINE HYCLATE 100 MG CAP PO SCH (09:23)
[2019-11-16] MEDS: TAMSULOSIN HCL 0.4 MG CAP PO SCH (09:23)
[2019-11-16] MEDS: FINASTERIDE 5 MG TAB PO SCH (09:23)
[2019-11-16] MEDS: predniSONE 10 MG TABLET PO SCH (09:23)
[2019-11-16] MEDS: BUDESONIDE/FORMOTEROL FUMARATE 160/4.5 60 PUFFS/INHALER INH SCH ×2 (09:24→20:43)
--- NOTE | 2019-11-16 16:14 | Hospitalist Progress Note ---
Date of Service November 16, 2019 Assessment & Plan (1) Sepsis: 2nd to pneumonia sepsis resolved lingering leukocytosis likely is due to steroid use afebrile (2) SVT (supraventricular tachycardia): 2 nights ago. s/p adenosine with resolution. echo this admission wnl. no recurrence since. monitor on tele. (3) Acute respiratory failure: resolved. 2nd to pneumonia. O2 weaned off. obtained speech therapy consult - he is indeed aspirating thus pneumonia could be from such. stop abx today. discussed thickeners vs leaving liquids as is. 2 daughters wish to thicken the liquids. this can be followed at [facility] by their speech dept. will ask speech this weekend before d/c what they advise re: thickeners. (4) Pneumonia: b/l. slowly resolving. completed full 7 days of rocephin and doxycycline. stop abx today. treating for community-acquired pneumonia. s/p speech consultation - this could be aspiration pneumonia as well. he is MRSA positive but I don't suspect it is MRSA pneumonia. blood cx's negative. (5) Sepsis associated hypotension: resolved (6) Elevated troponin: myocardial demand ischemia in setting of sepsis/pneumonia no ACS echo w/o wall motion abnormalities (7) Acute kidney injury (SAM) with acute tubular necrosis (ATN): resolved (8) SDH (subdural hematoma): 10/2018 s/p evacuation at [facility] 04/2019 CT head with stable L sided residual SDH CT head this admission - no recurrent SDH or other new pathology (old SDH again seen but no change) (9) Abnormal stool color: checked fecal occult blood - was +, but H/H remain stable cont PPI could easily have gastritis, etc. (10) Altered mental status: metabolic encephalopathy/hospital psychosis in setting of likely an un derlying cognitive impairment/dementia process from his prior TBI (subdural hematoma) supportive care for encephalopathy CT head as noted above avoid benzos/sedatives if possible (11) Cognitive impairment: baseline per daughter (12) Hypokalemia: replaced/resolved (13) Urinary retention: likely due to BPH started flomax and finasteride 11/15 placed giordano 11/15 leave giordano for minimum of 1 week then trial of void then (14) Severe protein-calorie malnutrition: nearly 10kg weight loss since 04/2019 add MVI add thiamine 200mg BID consider boost/ensure daughter reports overall, general decline since 10/2018 when he had SDH and hospitalization for such (15) DVT prophylaxis: chemical means deferred due to prior SDH and heme+ stool SCDs approved for [facility] daughters updated by phone on 11/16 hopefully d/c to [facility] on 11/17 Subjective tele overnight wnl/NSR. patient sleeping during my rounds. easily awoke. was disoriented. but denied any complaints. he did remember that he "ate a good lunch" (100% consumed per nursing documentation). no new issues per staff. Review of Systems Review of Systems: Unobtainable due to cognitive status Physical Exam Constitutional: + thin and + altered mental status; + not well developed, + not well nourished and no acute distress ENMT: external ear and nose normal, oropharynx normal Respiratory: no respiratory distress Auscultation: + crackles (b/l ) and + wheezes (occasional) Cardiovascular: Rate/Rhythm: regular rate and regular rhythm Heart Sounds: normal S1 and normal S2; no murmur Vessels: posterior tibial pulses present and dorsalis pedis pulses present; no JVD Extremities: no edema Gastrointestinal (Abdomen): normal bowel sounds, soft, nontender, no hepatosplenomegaly Skin: ulceration RLE, lateral, just inferior to knee - clean Psychiatric: Orientation: alert and oriented to person; + not oriented to place and + not oriented to time Results & Data Vital Signs (Past 12 Hours) Vital Signs Temp Pulse Pulse Resp BP Pulse Ox 11/16/19 15:30 36.8 C 82 16 144/57 H 94 11/16/19 15:10 77 11/16/19 11:20 36.4 C L 69 18 142/77 H 96 11/16/19 08:00 73 11/16/19 07:14 36.5 C 82 18 106/67 93 11/16/19 04:49 137/78 Laboratory Results Laboratory Results - last 24 hr 11/16/19 11/16/19 06:59 06:59 WBC 13.99 H RBC 3.72 L Hgb 11.3 L Hct 34.2 L MCV 91.9 MCH 30.4 MCHC 33.0 RDW Std Deviation 47.9 H RDW Coeff of Radha 14.2 Plt Count 236 MPV 9.7 Sodium 138 Potassium 3.8 Chloride 105 Carbon Dioxide 30 Anion Gap 3.0 BUN 23 H Creatinine 0.75 Est Cr Clr Drug Dosing 52.5 Est GFR ( Amer) 94.9 Est GFR (Non-Af Amer) 81.9 BUN/Creatinine Ratio 31.4 H Glucose 96 Calcium 9.4 PG Care Time/CCT Total # of Minutes Spent Total Time Spent with Patient: Total time spent is greater than 50% in coordination of care (as documented) at patient's floor/unit and/or counseling patient: (1) Acute respiratory failure Respiratory failure complication: hypoxia Qualified Code(s): J96.01 - Acute respiratory failure with hypoxia (2) Pneumonia Laterality: unspecified laterality Lung location: unspecified part of lung Pneumonia type: due to unspecified organism Qualified Code(s): J18.9 - Pneumonia, unspecified organism
[2019-11-16 20:01] VITALS: O2SAT 95
[2019-11-16] MEDS: THIAMINE HCL 100 MG TAB PO SCH (20:43)
[2019-11-17] MEDS ORDERED: CEROVITE ADV FORMULA TAB PO SCH (07:00)
[2019-11-17 07:40] LABS: Hematocrit (blood only) 38.1 % (42-52); Hemoglobin 12.6 g/dL (14.0-18.0); Mean Corpuscular Hemoglobin 30.6 pg (25-34); Mean Corpuscular Hgb Conc 33.1 g/dL (32-36); Mean Corpuscular Volume 92.5 fL (80-100); Mean Platelet Volume 9.4 fL (7.4-10.4); Platelet Count 267 K/uL (130-400); RDW Coefficient of Variation 14.2 % (11.5-14.5); Red Blood Count 4.12 M/uL (4.7-6.1); White Blood Count 14.36 K/uL (4.8-10.8)
[2019-11-17 08:07] LABS: BUN Creatinine Ratio 31.6 (10-20); Calcium 9.6 mg/dl (8.5-10.1); Creatinine Clr Calc Pharmacy 61.3 ml/min; Est GFR (African American) 101.3; Est GFR (Non-African American) 87.4; Potassium 3.6 mmol/L (3.5-5.1)
[2019-11-17 08:42] LABS: Folate (Folic Acid) 5.29 ng/ml (>5.38)
[2019-11-17] MEDS: BUDESONIDE/FORMOTEROL FUMARATE 160/4.5 60 PUFFS/INHALER INH SCH (09:08)
[2019-11-17] MEDS: predniSONE 10 MG TABLET PO SCH (09:16)
[2019-11-17] MEDS: THIAMINE HCL 100 MG TAB PO SCH (09:16)
[2019-11-17] MEDS: LANSOPRAZOLE 30 MG SOLTAB PO SCH (09:16)
[2019-11-17] MEDS: TAMSULOSIN HCL 0.4 MG CAP PO SCH (09:16)
[2019-11-17] MEDS: FINASTERIDE 5 MG TAB PO SCH (09:17)
--- NOTE | 2019-11-17 10:40 | Discharge Summary ---
Date of Service date of admission - November 09, 2019 date of discharge - November 17, 2019 Admission HPI Per Admitting Provider The patient is an 89 year old male with past medical history of hypertension and SDH requiring evacuation at [facility] in 10/2009 who was brought to the emergency room with a complaint of fever, chills, cough, and dizziness for 3 to 5 days. Patient's son and daughter are at the bedside and giving history. Patient is poor historian and his daughter said he has had memory difficulty since his subdural hematoma surgery at [facility]. Patient's daughter reports that Mr Aguirre's significant other was recently diagnosed with pneumonia and in fact was hospitalized at another hospital approximately 7 days ago. Patient typically ambulates only with walker but lately became increasingly weak and the family believes at this time he can only use wheelchair to move around. Patient's appetite is decreased as of today but yesterday he ate very well. Patient denies headache, chest pain, abdominal pain, frequency, urgency, syncope or near syncope. Patient's daughter also reported a swelling of his right calf. Ultrasound of the calf was done and shows no fluid collection within the right calf by sonography. No mass or other sonographic abnormality was identified no right calf abscess by ultrasound. Labs reviewed: WBC is 25.57, hemoglobin 12.3, hematocrit 36.6, platelets 256, PT 11.8, INR 1.2, APTT 28.9, sodium 137, potassium 3.9, chloride 104, BUN 28 creatinine 1.04, and GFR 63.8, glucose 118, lactate 1.8, repeated lactate pending, magnesium 2, AST 21, ALT 27, troponin 0.064, BNP 3203, Albumin 2.7, TSH pending, procalcitonin 9.28. Urine orange, trace blood, 1+ nitrate, leukocyte esterase trace, normal WBCs negative for bacteria. Influenza AMB negative. Chest x-rays show asymmetric interstitial thickening within the right lung with possible right perihilar/infrahilar opacity. These findings may reflect pneumonia or asymmetric pulmonary edema. Decision is made to admit patient to [facility] on telemetry for pneumonia. Principal Diagnosis acute hypoxic respiratory failure 2nd to bilateral pneumonia Discharge Exam Constitutional + thin, + altered mental status (mild confusion, although knows it is October & that the year is "20" ) and + frail appearing; + not well developed, + not well nourished and no acute distress ENMT external ear and nose normal, oropharynx normal Respiratory no respiratory distress Auscultation: + diminished lung sounds (right base) and + crackles (b/l worse left base); no wheezes Cardiovascular Rate/Rhythm: regular rate and regular rhythm Heart Sounds: normal S1 and normal S2; no murmur Vessels: posterior tibial pulses present and dorsalis pedis pulses present; no JVD Extremities: no edema Gastrointestinal (Abdomen) normal bowel sounds, soft, nontender, no hepatosplenomegaly Skin tiny ulceration, right lateral madison just inferior to the knee; optifoam in place Psychiatric Orientation: alert, oriented to person and oriented to place; + not oriented to time (partially ) Discharge Data Allergies Allergy/AdvReac Type Severity Reaction Status Date / Time No Known Allergies Allergy Verified 11/09/19 15:19 Consultations PT, OT, speech therapy Ordered Studies 1. US extremity non-vascular - right leg - no evidence of abscess. 2. CT head/brain - Impression: 1. No acute intracranial hemorrhage. 2. Small chronic left frontal subdural hematoma. 3. No new or interval findings. 3. echocardiogram - * >EF 70% * mild LVH * mild pulmonary HTN * normal valve function * normal wall motion 4. multiple chest x-rays Hospital Course (1) Sepsis: 2nd to bilateral pneumonia. Sepsis resolved with IV antibiotics & supportive care. Patient had a mild, lingering leukocytosis late in his stay likely due to steroid use. Patient's overall status improved with time - appetite improved, O2 was weaned off, and he remained afebrile. Blood and sputum cultures were negative while hospitalized. (2) Acute respiratory failure: 2nd to pneumonia - resolved. O2 weaned off several days prior to discharge. There was some concern about possible acute diastolic CHF early in his stay but he promptly had an acute rise with his creatinine after attempts at diuresis. Thus, he likely did NOT have acute diastolic CHF playing any role in his presentation. (3) Pneumonia: b/l. Slowly resolved clinically with IV antibiotics & time. Completed full 7 days of rocephin and doxycycline. Pneumonia was either community-acquired OR aspiration. Although he grew MRSA from a right leg wound I do not believe that this was a MRSA pneumonia. Blood and sputum cultures were negative while hospitalized. Patient's family was counseled that he remains at risk of recurrent pneumonia due to his dysphagia. (4) Sepsis associated hypotension: Resolved with steroids, antibiotics and supportive care. (5) Acute kidney injury (SAM) with acute tubular necrosis (ATN): Resolved. Likely sepsis-associated ATN. IV diuretics may have made the SAM worse as well. Peak creatinine was 2.9. Discharge creatinine was 0.6. (6) SVT (supraventricular tachycardia): Early AM of 11/15/2019 the patient had an asymptomatic run of SVT that broke with adenosine x 1. Echo this admission was wnl. He had no other runs of SVT the entire hospitalization. In bryn of lisinopril low-dose metoprolol was begun in the event he has future runs of SVT. (7) Elevated troponin: The elevated troponin was felt to be myocardial demand ischemia in setting of sepsis/pneumonia. ACS was not suspected. Echo was w/o wall motion abnormalities. Peak troponin was 0.06. (8) SDH (subdural hematoma): 10/2018 - s/p evacuation at [facility]. 04/2019 - CT head with stable L sided residual SDH. CT head this admission - no recurrent SDH or other new pathology (old left SDH again seen but no change). 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 Symptoms waxed/waned. His mental status was best in the 48 hours prior to discharge. Daughters report that he has good days consisting of decent orientation/memory and other days when he is disoriented, sleepy, has poor cognition, etc. (10) Cognitive impairment: Patient was near-baseline at time of discharge - per family. (11) Hypokalemia: replaced/resolved (12) Urinary retention: After d/c of giordano later in his stay the patient had significant urinary retention (500-1000cc on bladder scan). Likely due to BPH. Cannot exclude central causes (h/o subdural hematoma). started flomax and finasteride 11/15. placed another giordano on 11/15. Recommend that giordano remain for minimum of 1 week post-d/c, remove the giordano then, and attempt spontaneous voiding trial. (13) Severe protein-calorie malnutrition: nearly 10kg weight loss since 04/2019 added MVI added thiamine 200mg BID added folate for folate deficiency consider boost/ensure daughter reports general decline since 10/2018 when he had SDH and hospitalization for such. cannot exclude other underlying pathology (gastric cancer given his heme+ stool/melena, etc). poor candidate, however, for extensive work-up. defer to family whether to pursue additional outpatient work-up. (14) Folate deficiency: Level ~5 on 11/17/19. Folate 1mg po daily x 30 days. B12 level was wnl. (15) Heme positive stool: On 1-2 occasions the patient's stool was felt to have melena. Checked fecal occult blood and it was +, but H/H remained stable the entire stay arguing against any active/yo GI bleed. He was initiated on PPI once daily (prevacid 30mg daily). He is a very poor candidate for endoscopic evaluation. In light of the severity of his illness he could easily have gastritis, etc. Alternatively, given his weight loss over the last 6-12 months, he could have more serious pathology. Recommend after his rehab stay that this issue be discussed in more detail - perhaps with his PCP. Total Time Total Time Spent Total Time Spent (In Minutes): 45 Total Time Includes: Examination of the Patient, Discharge Planning, Medication Reconciliation and Communication With Other Providers ([facility] medical director occupational health) Discharge Plan Discharge Items Patient Disposition: Transfer Inpatient Rehab Fac Reason For Visit: pneumonia Discharge Diagnosis: 1. sepsis due to bilateral pneumonia (community-acquired vs aspiration) 2. acute kidney injury - resolved 3. h/o subdural hematoma requiring evacuation in October 2018 4. cognitive impairment since the subdural hematoma 5. failure to thrive / severe protein calorie malnutrition since October 2018; 20-30 pound weight loss since then 6. urinary retention s/p giordano placement 7. one isolated episode of SVT during the stay 8. folic acid deficiency 9. dysphagia with high aspiration risk; on nectar thick liquids Activity: Resume your previous activity Non-emergency contact: Primary Care Provider Call non-emergency contact if: you have any medication questions, your symptoms worsen and you have a fever Follow-up/Referrals: Perez Barros MD [Primary Care Provider] - (see Dr Barros after discharge from [facility] ) Diet: Regular Liquid Consistency: Nelson thick Addtl Attending Provider Instructions: 1. Repeat CBC, BMP, magnesium level in 3-4 days for stability. 2. PT, OT, speech. 3. Aspiration precautions - head of bed at 30 degrees at all times, small sips/bites, upright for all meals, etc. 4. Continue giordano catheter for another 5-6 days then remove and perform spontaneous voiding trial. Patient had had urinary retention while here. Pending Studies at Discharge: No Stand-Alone Forms: [facility] Skilled Items Patient informed of condition?: Yes DNR: Yes Discharge Level of Care: Acute rehab Communicable Disease: Yes (MRSA - right leg wound ) Discharge Prognosis: Stable Lines: None Urinary Catheter: Yes Medications and DC Order Prescriptions: New tamsulosin 0.4 mg Capsule 0.4 mg PO QAM Qty: 30 RF: 2 lansoprazole [Prevacid SoluTab] 30 mg Tablet,Disintegrat, Delay Rel 30 mg PO QAM Qty: 30 RF: 2 prednisone 10 mg Tablet 10 mg PO DIRECTED Qty: 14 RF: 0 finasteride [Proscar] 5 mg Tablet 5 mg PO QAM Qty: 30 RF: 2 thiamine HCl (vitamin B1) [Vitamin B-1] 100 mg Tablet 200 mg PO BID 30 Days Qty: 120 RF: 0 Certavite-Antioxidant 18-400 mg-mcg Tablet 1 tab PO DAILY@0700 Qty: 90 RF: 3 folic acid 1 mg tablet 1 mg PO DAILY Qty: 30 RF: 0 metoprolol tartrate 25 mg tablet 12.5 mg PO BID Qty: 60 RF: 2 guaifenesin 200 mg/5 mL liquid 200 mg PO Q6H PRN (Reason: cough) Qty: 473 RF: 0 Combivent Respimat 20-100 mcg/actuation mist 1 puffs INH QID Qty: 4 RF: 1 Discontinued lisinopril 10 mg tablet 10 mg PO DAILY RF: 0 Discharge Orders: Discharge Order (Routine); Ordered 11/17/19 Ordered By: Marlo Toussaint Admission Data Admit Date/Time: 11/09/19 18:12 Attending Provider: Marlo Toussaint Admit Provider: Dasia Kim Primary Care Provider: Perez Barros Other Providers: Dasia Kim ; [facility] Other Interventions: Discharge Summary Assessment (RN) Last Done: 11/17/19 12:19 DC Date/Time DO NOT enter until pt leaves facility: 11/17/19 13:15
[2019-11-17 12:04] VITALS: BP 133/83; TEMP 98.4
[2019-11-17 12:26] VITALS: PULSE 80
== END 2019-11-17 13:15 | DRG 193 ==
LOC: ED 14:11 → SUATTDRO 18:12 → 2S 18:12